=== PATIENT | female | born 2005 | race African-American/Black ===

== ENCOUNTER 2025-01-13 17:18 | Emergency (ER) | payer MEDICAID, SELFPAY ==
[2025-01-13 17:37] VITALS: BP 146/86; PULSE 88; RESP 16; TEMP 36.6; O2SAT 100
--- NOTE | 2025-01-13 17:46 | ED_ITS ---
HPI - Chest Pain General Chief Complaint: Extremity Injury, Upper <Bubba Corona APRN - Last Filed: 01/13/25 17:49> Stated Complaint: L ARM TINGLING, PALPATATIONS X 2DAYS <Bubba Corona APRN - Last Filed: 01/13/25 17:49> Time Seen by Provider: 01/13/25 18:37 <Bubba Corona APRN - Last Filed: 01/13/25 17:49> Focused HPI: 19-year-old female presents to the ER complaining of chest pain, palpitations, left arm tingling the last 2 days. Patient was recently seen for chest pain was told she had anxiety. Patient admits she has a history of anxiety. However today she developed left arm tingling and numbness which is new for her which is why she decided to come in for further evaluation. Patient denies any shortness of breath, nausea, vomiting, fevers, cough, congestion, abdominal pain, diarrhea, or any other symptoms. Patient is not taking for her anxiety. Patient says she 6 week had ultrasound her last ER visit told she has a viable . Patient has a follow-up with her OBGYN in February . GENERAL: Well-appearing, well-nourished, and in no acute distress. HEAD: Normocephalic, atraumatic. CHEST: Clear to auscultation. ?No respiratory distress. HEART: Regular rate and rhythm.? NEURO: ?Alert and oriented x3. Patient screened in triage and initial orders placed.? ?Additional care and disposition to be based upon?diagnostic testing and treatment. <Bubba Corona APRN - Last Filed: 01/13/25 17:49> Related Data Allergies/Adverse Reactions: Allergies Allergy/AdvReac Type Severity Reaction Status Date / Time meningococcal vaccine A and C Allergy Rash Verified 01/13/25 17:20 <Bubba Corona APRN - Last Filed: 01/13/25 17:49> Exam 2 Narrative: APPEARANCE: No apparent distress. Head: atraumatic. EYES: EOMI, NOSE: Atraumatic NECK: Trachea midline RESPIRATORY: No increased rate of breathing clear to auscultation CARDIOVASCULAR: RRR, no peripheral edema ABDOMINAL: Non-distended soft nontender MUSCULOSKELETAl: No obvious deformities NEURO: Alert. Moving 4/4 extremities SKIN:: Warm, dry. Normal color PSYCHIATRIC: Normal affect <Ken Damon MD - Last Filed: 01/13/25 20:31> Course Vital Signs Vital signs: Vital Signs Temperature 97.9 F 01/13/25 17:37 Pulse Rate 88 01/13/25 17:37 Respiratory Rate 16 01/13/25 17:37 Blood Pressure 146/86 H 01/13/25 17:37 Pulse Oximetry 100 01/13/25 17:37 Oxygen Delivery Room Air 01/13/25 17:37 Temperature 97.9 F 01/13/25 17:37 Pulse Rate 78 01/13/25 19:01 Respiratory Rate 23 H 01/13/25 19:01 Blood Pressure 118/91 H 01/13/25 19:00 Pulse Oximetry 100 01/13/25 19:01 Oxygen Delivery Room Air 01/13/25 17:37 <Bubba Corona APRN - Last Filed: 01/13/25 17:49> Vital Signs Temperature 97.9 F 01/13/25 17:37 Pulse Rate 88 01/13/25 17:37 Respiratory Rate 16 01/13/25 17:37 Blood Pressure 146/86 H 01/13/25 17:37 Pulse Oximetry 100 01/13/25 17:37 Oxygen Delivery Room Air 01/13/25 17:37 Temperature 97.9 F 01/13/25 17:37 Pulse Rate 78 01/13/25 19:01 Respiratory Rate 23 H 01/13/25 19:01 Blood Pressure 118/91 H 01/13/25 19:00 Pulse Oximetry 100 01/13/25 19:01 Oxygen Delivery Room Air 01/13/25 17:37 <Ken Damon MD - Last Filed: 01/13/25 20:31> MDM - Chest Pain MDM Narrative Medical decision making narrative: -Course: 19-year-old female with history of anxiety recently has had an unexpected/unplanned presenting for chest discomfort and left arm tingling. Patient says she has been having 3 weeks of a ?sick feeling in her chest. ?This started when she wakes up in the morning. Today she had some paresthesias in her left arm. She was seen at an outside hospital and prescribed antianxiety meds but she has not taken them because she said she tried than 3 years ago and they did not work. She does not have fevers chills productive cough shortness of breath abdominal pain vaginal bleeding or discharge. She does not have any swelling of her lower extremities. Extensive chest pain workup was ordered by provider in triage. Patient is but does not have any abdominal pain vaginal bleeding or discharge. She has had a viability ultrasound. No further workup required in the ED today. Workup was unrevealing. Chest x-ray was clear. Troponin D-dimer and BNP were all undetectable. EKG showed sinus arrhythmia. Patient was informed of the results instructed follow-up with her primary care physician for further management. -DDX includes but is not limited to: Anxiety, nausea from , pneumonia PE pneumothorax -Co-morbidities complicating care: Anxiety, <Ken Damon MD - Last Filed: 01/13/25 20:31> Lab Data Result diagrams: 01/13/25 18:45 01/13/25 18:45 <Bubba Corona APRN - Last Filed: 01/13/25 17:49> Labs: Lab Results 01/13/25 01/13/25 Range/Units 18:16 18:45 WBC 11.0 H (4.5-10.0) K/mm3 RBC 4.80 (4.2-5.4) M/mm3 Hgb 13.7 (12.0-15.0) g/dL Hct 41.1 (37.0-47.0) % MCV 85.6 (80-100) fl MCH 28.5 (26-34) pg MCHC 33.3 (32-36) g/dl RDW 12.8 (11.5-14.5) % Plt Count 353 (150-375) k/mm3 MPV 10.7 H (7.4-10.4) fl Immature Gran % (Auto) 0.4 (0-0.5) % Neut % (Auto) 70.4 (45.5-73.1) % Lymph % (Auto) 20.4 (18.3-44.2) % [place] % (Auto) 7.2 (2.6-8.5) % Eos % (Auto) 1.1 (0-4.4) % Baso % (Auto) 0.5 (0.2-1.2) % Lymph # (Auto) 2.24 (0.9-3.2) K/mm3 [place] # (Auto) 0.8 H (0.1-0.6) K/mm3 Eos # (Auto) 0.1 (0-0.3) K/mm3 Baso # (Auto) 0.1 (0.0-0.1) K/mm3 Abs Immat Gran (auto) 0.04 H (0.00-0.031) K/mm3 Absolute Neuts (auto) 7.7 H (1.3-6.7) K/mm3 Absolute Nucleated RBC 0.000 (0.0-0.012) K/mm3 Nucleated RBC % 0.0 (0.0-0.2) % PT 13.1 (11.1-14.7) Seconds INR 1.0 APTT 31.5 (22.3-36.8) Seconds D-Dimer < 0.27 (<0.48) ug/mL Sodium 136 (134-143) mmol/L Potassium 3.6 (3.4-5.0) mmol/L Chloride 103 (98-107) mmol/L Carbon Dioxide 23 (22-30) mmol/L Anion Gap 10 (4-12) mmol/L BUN 7 L (8-21) mg/dL Creatinine 0.59 L (0.7-1.0) mg/dL Estim Creat Clear Calc 128 ml/min Estimated GFR > 60 (59 - ) Glucose 83 (65-110) mg/dL Calcium 9.3 (8.9-10.7) mg/dL Total Bilirubin 0.6 (0.2-1.3) mg/dL AST 21 (14-36) U/L ALT 17 (6-35) U/L Alkaline Phosphatase 55 (45-116) U/L Troponin I < 0.012 (0.000-0.034) ng/mL Total Protein 7.6 (6.3-8.6) g/dL Albumin 4.4 (3.7-5.6) g/dL Lipase 186 (23-300) U/L Urine Color Cancelled Yellow Urine Appearance Cancelled Clear Urine pH Cancelled 7.5 Ur Specific [place] Cancelled 1.016 Urine Protein Cancelled Negative Urine Glucose (UA) Cancelled Negative Urine Ketones Cancelled Negative Ur Blood (Man) Cancelled Negative Urine Nitrate Cancelled Negative Urine Bilirubin Cancelled Negative Urine Urobilinogen Cancelled 0.2 Add Ur Microanalysis Cancelled Leukocyte Esterase Rfl Cancelled Trace H Urine RBC Cancelled 0-2 Urine WBC Cancelled 0-5 Urine WBC Clumps Cancelled Ur Squamous Epith Cells Cancelled Occasional Ur Transition Epith Cell Cancelled Ur Renal Epithelial Cell Cancelled [place] Biurate Crystals Cancelled Calcium Carbonate Cryst Cancelled Calcium Phosphate Cryst Cancelled Calcium Oxalate Crystal Cancelled Leucine Crystals Cancelled Cystine Crystals Cancelled Uric Acid Crystals Cancelled Triple Phos Crystals Cancelled Sulfonamide Crystals Cancelled Cholesterol Crystals Cancelled [place] Crystals Cancelled Tyrosine Crystals Cancelled Hippuric Acid Crystals Cancelled Bilirubin Crystals Cancelled Other Crystals Cancelled Amorphous Sediment Cancelled Other Sediment Cancelled Urine Bacteria Cancelled None seen Urine Casts Cancelled 0-2 Cellular Casts Cancelled Epithelial Casts Cancelled Fatty Casts Cancelled Hyaline Casts Cancelled Granular Casts Cancelled Waxy Casts Cancelled Broad Casts Cancelled RBC Casts Cancelled WBC Casts Cancelled Urine Starch Cancelled Urine Mucus Cancelled Urine Trichomonas Cancelled Urine Yeast (Budding) Cancelled Ur Oval Fat Bodies Cancelled Sperm Presence Cancelled <Bubba Corona, SHERRIE - Last Filed: 01/13/25 17:49> Lab Results 01/13/25 01/13/25 Range/Units 18:16 18:45 WBC 11.0 H (4.5-10.0) K/mm3 RBC 4.80 (4.2-5.4) M/mm3 Hgb 13.7 (12.0-15.0) g/dL Hct 41.1 (37.0-47.0) % MCV 85.6 (80-100) fl MCH 28.5 (26-34) pg MCHC 33.3 (32-36) g/dl RDW 12.8 (11.5-14.5) % Plt Count 353 (150-375) k/mm3 MPV 10.7 H (7.4-10.4) fl Immature Gran % (Auto) 0.4 (0-0.5) % Neut % (Auto) 70.4 (45.5-73.1) % Lymph % (Auto) 20.4 (18.3-44.2) % [place] % (Auto) 7.2 (2.6-8.5) % Eos % (Auto) 1.1 (0-4.4) % Baso % (Auto) 0.5 (0.2-1.2) % Lymph # (Auto) 2.24 (0.9-3.2) K/mm3 [place] # (Auto) 0.8 H (0.1-0.6) K/mm3 Eos # (Auto) 0.1 (0-0.3) K/mm3 Baso # (Auto) 0.1 (0.0-0.1) K/mm3 Abs Immat Gran (auto) 0.04 H (0.00-0.031) K/mm3 Absolute Neuts (auto) 7.7 H (1.3-6.7) K/mm3 Absolute Nucleated RBC 0.000 (0.0-0.012) K/mm3 Nucleated RBC % 0.0 (0.0-0.2) % PT 13.1 (11.1-14.7) Seconds INR 1.0 APTT 31.5 (22.3-36.8) Seconds D-Dimer < 0.27 (<0.48) ug/mL Sodium 136 (134-143) mmol/L Potassium 3.6 (3.4-5.0) mmol/L Chloride 103 (98-107) mmol/L Carbon Dioxide 23 (22-30) mmol/L Anion Gap 10 (4-12) mmol/L BUN 7 L (8-21) mg/dL Creatinine 0.59 L (0.7-1.0) mg/dL Estim Creat Clear Calc 128 ml/min Estimated GFR > 60 (59 - ) Glucose 83 (65-110) mg/dL Calcium 9.3 (8.9-10.7) mg/dL Total Bilirubin 0.6 (0.2-1.3) mg/dL AST 21 (14-36) U/L ALT 17 (6-35) U/L Alkaline Phosphatase 55 (45-116) U/L Troponin I < 0.012 (0.000-0.034) ng/mL Total Protein 7.6 (6.3-8.6) g/dL Albumin 4.4 (3.7-5.6) g/dL Lipase 186 (23-300) U/L Urine Color Cancelled Yellow Urine Appearance Cancelled Clear Urine pH Cancelled 7.5 Ur Specific [place] Cancelled 1.016 Urine Protein Cancelled Negative Urine Glucose (UA) Cancelled Negative Urine Ketones Cancelled Negative Ur Blood (Man) Cancelled Negative Urine Nitrate Cancelled Negative Urine Bilirubin Cancelled Negative Urine Urobilinogen Cancelled 0.2 Add Ur Microanalysis Cancelled Leukocyte Esterase Rfl Cancelled Trace H Urine RBC Cancelled 0-2 Urine WBC Cancelled 0-5 Urine WBC Clumps Cancelled Ur Squamous Epith Cells Cancelled Occasional Ur Transition Epith Cell Cancelled Ur Renal Epithelial Cell Cancelled [place] Biurate Crystals Cancelled Calcium Carbonate Cryst Cancelled Calcium Phosphate Cryst Cancelled Calcium Oxalate Crystal Cancelled Leucine Crystals Cancelled Cystine Crystals Cancelled Uric Acid Crystals Cancelled Triple Phos Crystals Cancelled Sulfonamide Crystals Cancelled Cholesterol Crystals Cancelled [place] Crystals Cancelled Tyrosine Crystals Cancelled Hippuric Acid Crystals Cancelled Bilirubin Crystals Cancelled Other Crystals Cancelled Amorphous Sediment Cancelled Other Sediment Cancelled Urine Bacteria Cancelled None seen Urine Casts Cancelled 0-2 Cellular Casts Cancelled Epithelial Casts Cancelled Fatty Casts Cancelled Hyaline Casts Cancelled Granular Casts Cancelled Waxy Casts Cancelled Broad Casts Cancelled RBC Casts Cancelled WBC Casts Cancelled Urine Starch Cancelled Urine Mucus Cancelled Urine Trichomonas Cancelled Urine Yeast (Budding) Cancelled Ur Oval Fat Bodies Cancelled Sperm Presence Cancelled <Ken Damon MD - Last Filed: 01/13/25 20:31> Discharge Plan Discharge Clinical Impression: Anxiety, Arm paresthesia, left <Bubba Corona APRN - Last Filed: 01/13/25 17:49> Patient Disposition: Home <Bubba Corona APRN - Last Filed: 01/13/25 17:49> Condition: Stable <Bubba Corona APRN - Last Filed: 01/13/25 17:49> Instructions: Antibiotic Form, Chest Pain (DC) <Bubba Corona APRN - Last Filed: 01/13/25 17:49> Additional Instructions: You were seen in the emergency department for chest discomfort. Your workup here did not reveal a cause. It may be due to your anxiety. Please follow-up with your primary care physician for further management. If you develop worsening chest pain difficulty breathing or any new symptoms please return to the ED for re-evaluation. <Bubba Corona APRN - Last Filed: 01/13/25 17:49> Patient Language: Romanian <Bubba Corona APRN - Last Filed: 01/13/25 17:49> Follow-up/Referrals: PHYSICIAN,PECAN PICKER [Primary Care Provider, Internal Medicine] <Bubba Corona APRN - Last Filed: 01/13/25 17:49>
--- NOTE | 2025-01-13 17:48 | ECG_ITS ---
Test Date: 2025-01-13 18:38:25 Measurements Intervals [place] Rate: 90 P: 38 NV: 118 QRS: 23 QRSD: 86 T: 31 QT: 353 QTc: 432 Interpretive Statements SINUS ARRHYTHMIA No previous ECG available for comparison Electronically Signed On 01-14-2025 11:00:14 CDT by Berny Galindo M.D.
[2025-01-13 18:49] VITALS: PULSE 89; RESP 22; O2SAT 100
[2025-01-13 18:50] VITALS: BP 122/80; PULSE 84; RESP 24; O2SAT 100
[2025-01-13 19:00] VITALS: BP 118/91; PULSE 77; RESP 22; O2SAT 100
[2025-01-13 19:01] VITALS: PULSE 78; RESP 23; O2SAT 100
--- NOTE | 2025-01-13 19:08 | ED_ITS ---
HPI - General Adult General Chief complaint: Extremity Injury, Upper Stated complaint: L ARM TINGLING, PALPATATIONS X 2DAYS Time Seen by Provider: 01/13/25 18:37 Related Data Allergies Allergy/AdvReac Type Severity Reaction Status Date / Time meningococcal vaccine A and C Allergy Rash Verified 01/13/25 17:20 Exam 2 Narrative: APPEARANCE: No apparent distress. Head: atraumatic. EYES: EOMI, NOSE: Atraumatic NECK: Trachea midline RESPIRATORY: No increased rate of breathing CARDIOVASCULAR: RRR, ABDOMINAL: Non-distended MUSCULOSKELETAl: No obvious deformities NEURO: Alert. Moving 4/4 extremities SKIN:: Warm, dry. Normal color PSYCHIATRIC: Normal affect Course Vital Signs Vital signs: Vital Signs Temperature 97.9 F 01/13/25 17:37 Pulse Rate 88 01/13/25 17:37 Respiratory Rate 16 01/13/25 17:37 Blood Pressure 146/86 H 01/13/25 17:37 Pulse Oximetry 100 01/13/25 17:37 Oxygen Delivery Room Air 01/13/25 17:37 Temperature 97.9 F 01/13/25 17:37 Pulse Rate 78 01/13/25 19:01 Respiratory Rate 23 H 01/13/25 19:01 Blood Pressure 118/91 H 01/13/25 19:00 Pulse Oximetry 100 01/13/25 19:01 Oxygen Delivery Room Air 01/13/25 17:37 Medical Decision Making Vital Signs Vital Signs: Vital Signs Temperature 97.9 F 01/13/25 17:37 Pulse Rate 88 01/13/25 17:37 Respiratory Rate 16 01/13/25 17:37 Blood Pressure 146/86 H 01/13/25 17:37 Pulse Oximetry 100 01/13/25 17:37 Oxygen Delivery Room Air 01/13/25 17:37 Temperature 97.9 F 01/13/25 17:37 Pulse Rate 78 01/13/25 19:01 Respiratory Rate 23 H 01/13/25 19:01 Blood Pressure 118/91 H 01/13/25 19:00 Pulse Oximetry 100 01/13/25 19:01 Oxygen Delivery Room Air 01/13/25 17:37 Lab Data 01/13/25 18:45 01/13/25 18:45 Labs: Lab Results 01/13/25 01/13/25 Range/Units 18:16 18:45 WBC Pending RBC Pending Hgb Pending Hct Pending MCV Pending MCH Pending MCHC Pending RDW Pending Plt Count Pending MPV Pending Immature Gran % (Auto) Pending Neut % (Auto) Pending Lymph % (Auto) Pending [place] % (Auto) Pending Eos % (Auto) Pending Baso % (Auto) Pending Lymph # (Auto) Pending [place] # (Auto) Pending Eos # (Auto) Pending Baso # (Auto) Pending Abs Immat Gran (auto) Pending Absolute Neuts (auto) Pending Absolute Nucleated RBC Pending Nucleated RBC % Pending PT Pending INR Pending APTT Pending D-Dimer Pending Sodium Pending Potassium Pending Chloride Pending Carbon Dioxide Pending Anion Gap Pending BUN Pending Creatinine Pending Estim Creat Clear Calc Pending Estimated GFR Pending Glucose Pending Calcium Pending Total Bilirubin Pending AST Pending ALT Pending Alkaline Phosphatase Pending Troponin I Pending Total Protein Pending Albumin Pending Lipase Pending Urine Color Cancelled Pending Urine Appearance Cancelled Pending Urine pH Cancelled Pending Ur Specific [place] Cancelled Pending Urine Protein Cancelled Pending Urine Glucose (UA) Cancelled Pending Urine Ketones Cancelled Pending Ur Blood (Man) Cancelled Pending Urine Nitrate Cancelled Pending Urine Bilirubin Cancelled Pending Urine Urobilinogen Cancelled Pending Add Ur Microanalysis Cancelled Leukocyte Esterase Rfl Cancelled Pending Urine RBC Cancelled Urine WBC Cancelled Urine WBC Clumps Cancelled Ur Squamous Epith Cells Cancelled Ur Transition Epith Cell Cancelled Ur Renal Epithelial Cell Cancelled [place] Biurate Crystals Cancelled Calcium Carbonate Cryst Cancelled Calcium Phosphate Cryst Cancelled Calcium Oxalate Crystal Cancelled Leucine Crystals Cancelled Cystine Crystals Cancelled Uric Acid Crystals Cancelled Triple Phos Crystals Cancelled Sulfonamide Crystals Cancelled Cholesterol Crystals Cancelled [place] Crystals Cancelled Tyrosine Crystals Cancelled Hippuric Acid Crystals Cancelled Bilirubin Crystals Cancelled Other Crystals Cancelled Amorphous Sediment Cancelled Other Sediment Cancelled Urine Bacteria Cancelled Urine Casts Cancelled Cellular Casts Cancelled Epithelial Casts Cancelled Fatty Casts Cancelled Hyaline Casts Cancelled Granular Casts Cancelled Waxy Casts Cancelled Broad Casts Cancelled RBC Casts Cancelled WBC Casts Cancelled Urine Starch Cancelled Urine Mucus Cancelled Urine Trichomonas Cancelled Urine Yeast (Budding) Cancelled Ur Oval Fat Bodies Cancelled Sperm Presence Cancelled Discharge Plan Discharge Patient Language: Guamanian Follow-up/Referrals: PHYSICIAN,OVERLOCK SEWING MACHINE OPERATOR [Primary Care Provider, Internal Medicine]
[2025-01-13 19:19] LABS: Alanine Aminotransferase 17 U/L (6-35); Albumin Level 4.4 g/dL (3.7-5.6); Alkaline Phosphatase 55 U/L (45-116); Anion Gap 10 mmol/L (4-12); Aspartate Amino Transferase 21 U/L (14-36); Bilirubin,Total 0.6 mg/dL (0.2-1.3); Blood Urea Nitrogen 7 mg/dL (8-21); Calcium 9.3 mg/dL (8.9-10.7); Carbon Dioxide 23 mmol/L (22-30); Chloride 103 mmol/L (98-107); Estimated CRCL calculation 128 ml/min; Estimated Glomerular Filt Rate > 60; Glucose 83 mg/dL (65-110); Lipase 186 U/L (23-300); Potassium 3.6 mmol/L (3.4-5.0); Sodium 136 mmol/L (134-143); Total Protein 7.6 g/dL (6.3-8.6)
--- NOTE | 2025-01-13 19:25 | PC.NURSE ---
Assumed care of pt after receiving bedside report from ANTOINETTE Cook @ [phone]
[2025-01-13 19:31] LABS: Troponin I < 0.012 ng/mL (0.000-0.034)
[2025-01-13 19:34] LABS: INR 1.0; Prothrombin Time 13.1 Seconds (11.1-14.7)
[2025-01-13 19:35] LABS: Partial Thromboplastin Time 31.5 Seconds (22.3-36.8)
[2025-01-13 19:42] LABS: Add Urine Microscopic? YES; Appearance Urine Clear (Clear); Glucose Urine UA Negative (Negative); Leukocyte Esterase Ur Trace LEU/UL (Negative); Nitrate Urine Negative (Negative); Non Pathogenic Casts 0-2; Specific Grav Ur 1.016 (1.001-1.035)
[2025-01-13 20:14] LABS: Hematocrit 41.1 % (37.0-47.0); Hemoglobin 13.7 g/dL (12.0-15.0); Immature Granulocyte Percent A 0.4 % (0-0.5); Lymphocytes Absolute Auto 2.24 K/mm3 (0.9-3.2); Mean Corpuscular HGB Conc 33.3 g/dl (32-36); Mean Corpuscular Hemoglobin 28.5 pg (26-34); Mean Corpuscular Volume 85.6 fl (80-100); Nucleated Red Blood Cells Absolute Auto 0.000 K/mm3 (0.0-0.012); Nucleated Red Blood Cells Perc 0.0 % (0.0-0.2); Platelet Count Result 353 k/mm3 (150-375); Red Blood Count 4.80 M/mm3 (4.2-5.4); White Blood Count 11.0 K/mm3 (4.5-10.0)
== END 2025-01-13 21:01 | disposition home or self-care (01) ==
PROVIDERS: Emergency Provider Emergency Medicine
DX: O99.891 Other specified diseases and conditions complicating pregnancy (principal); R20.2 Paresthesia of skin; O99.341 Other mental disorders complicating pregnancy, first trimester; F41.9 Anxiety disorder, unspecified; Z3A.01 Less than 8 weeks gestation of pregnancy
CPT/HCPCS: 36415; 80053; 81001; 83690; 84484; 85025; 85380; 85610; 85730; 93005; 99284

== ENCOUNTER 2025-04-21 07:17 | Emergency (ER) | payer OTHER, SELFPAY ==
[2025-04-21 07:28] VITALS: BP 139/100; PULSE 97; RESP 16; TEMP 36.4; O2SAT 99
--- NOTE | 2025-04-21 07:29 | ED_ITS ---
HPI - General Adult General Chief complaint: Skin/Abscess/Foreign Body Stated complaint: RASH ON L ANABAPTIST Time Seen by Provider: 04/21/25 07:24 History of Present Illness HPI narrative: 20-year-old female presented to the emergency department for evaluation for a left-sided facial rash. Patient suspects this was secondary to exposure to a metal clip that she had worn for few days. Patient denies any tenderness at the site but does report itching. Patient is no medications and is not immunocompromised. Patient denies any difficulty breathing or swallowing. Related Data Allergies Allergy/AdvReac Type Severity Reaction Status Date / Time fluoxetine AdvReac Headache Verified 04/21/25 07:18 MENINGITIS VACCINE Allergy RASH Uncoded 04/21/25 07:18 Review of Systems Review of Systems: All systems reviewed & are unremarkable except as noted in HPI and below Exam Narrative: APPEARANCE: Well appearing, no pain, no distress, well-nourished. HEAD: normocephalic, atraumatic. EYES: PERRLA/EOMI, conjunctivae clear. NOSE: Normal no drainage EARS:TMS clear with good light reflex. THROAT: Pharynx clear, no exudate. NECK: Supple. No adenopathy, no masses. RESPIRATORY: Airway patent, respirations nonlabored. Clear to auscultation bilaterally, no rales, rhonchi, wheezing. CARDIOVASCULAR: Regular rate and rhythm without murmurs rubs or gallops. ABDOMINAL: Soft, nontender, nondistended, normal bowel sounds MUSCULOSKELETAL: Moves all extremities. Strength/ROM intact, No edema, No calf tenderness. NEURO: Alert. Cranial nerves II through XII intact. Good gait. Good coordination SKIN: Rash at left religion Course Vital Signs Vital signs: Vital Signs Temperature 97.6 F 04/21/25 07:28 Pulse Rate 97 04/21/25 07:28 Respiratory Rate 16 04/21/25 07:28 Blood Pressure 139/100 H 04/21/25 07:28 Pulse Oximetry 99 04/21/25 07:28 Oxygen Delivery Room Air 04/21/25 07:28 Temperature 97.6 F 04/21/25 07:28 Pulse Rate 97 04/21/25 07:28 Respiratory Rate 16 04/21/25 07:28 Blood Pressure 128/93 H 04/21/25 07:50 Pulse Oximetry 99 04/21/25 07:28 Oxygen Delivery Room Air 04/21/25 07:28 MDM MDM Narrative Medical decision making narrative: 20-year-old female present to the emergency department for evaluation for a rash on her left religion. Rash does not appear to be cellulitic or herpetic. No tenderness to palpation. Patient does report itching. Patient will be treated with topical cortisone. Patient was encouraged of close follow-up with primary care physician. Differential Diagnosis Differential Diagnosis: Shingles, herpes, syphilis, cellulitis, dermatitis Discharge Plan Discharge Clinical Impression: Contact dermatitis Patient Disposition: Home Condition: Stable Instructions: Antibiotic Form, Contact Dermatitis (ED) Additional Instructions: Hydrocortisone steroid cream as directed. Have close follow-up with your primary care physician. Patient Language: South African Prescriptions: New hydrocortisone 1 % ointment 1 applic topical BID 5 Days Qty: 28.35 0RF Follow-up/Referrals: PHYSICIAN NOT ON STAFF,NONSTAFF [Non-Staff]
--- OUTSIDE RECORDS SUMMARY | 2025-04-21 07:47 | XMS_ITS | Clinical Summary ---
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 Gender Identity Not on file Sexual Orientation Not on file Plan of Treatment Health Maintenance Due Date Last Done Comments Hepatitis C Virus (HCV) Screening 2005 Human Papillomavirus (HPV) Immunization (1 - 3-dose series) 2020 Meningococcal B Immunization (1 of 2 - Standard) 2021 Influenza Immunization (#1) 2025 07/04/2018, 1 2005 SARS-COV-2 Immunization () 01/04/2025 Respiratory Syncytial Virus (RSV) Immunization (Adult) (1 - 1-dose 75+ series) 2080 Hepatitis B Immunization Completed 006, 2005, 2005, Additional history exists Hepatitis A Immunization Discontinued 10/31/2006, 04/05 Measles Mumps Rubella (MMR) Immunization Discontinued 05/09/2009, 04/22/2006 Polio (IPV) Immunization Discontinued 05/09/2009 Varicella Immunization Discontinued 05/09/2009, 2005 Pneumococcal Immunization Combined Completed 12/20/2009, 04/22/2006, 2005, Additional history exists DTaP/Tdap/Td Immunization Discontinued 2016, 05/09/2009, 07/17/2006, Additional history exists TdaP Immunization Completed 01/15/2017 Meningococcal Immunization (ACWY) Aged Out 03/13/2017, 12/17/2013 No longer eligibl e based on patient's age to complete this topic Rotavirus Immunization Aged Out No lo nger eligible based on patient's age to complete this topic
--- OUTSIDE RECORDS SUMMARY | 2025-04-21 07:47 | XMS_ITS | Encounter Summary ---
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 Name Role Phone Mani Vincent DO Primary Care Provider [phone] Encounter Details Date Type Department Care Team (Late st Contact Info) Description 03/15/2025 Results Follow-Up [facility] Family Medicine [address] [id number] Mani Vincent DO [address] [place] [address] Sureswab(R) Advanced Vaginitis Plus, TMA Vaginal Social History Tobacco Use Types Packs/Day Years Used Date Smoking Tobacco: Never Passive Smoke Exposure: Never Smokeless Tobacco: Never Alcohol Use Standard Drinks/Week Comments Never 0 (1 standard drink = 0.6 oz pur e alcohol) PHQ-2 Answer Date Recorded PHQ-2 Total Score (If total score is 3 or more points, staff should administer the PHQ-9) 0 03/12/2025 PHQ-9 Answer Date Recorded PHQ-9 Total Score 16 02/12/2025 AUDIT-C Answer Date Recorded Q1: How often do you have a drink containing alcohol? Never 03/15/2025 Q2: How many drinks containi ng alcohol do you have on a typical day when you are drinking? Patient does not drink Q3: How often do you have si x or more drinks on one occasion? Never 03/15/2025 Personal Safety Answer Date Recorded Have you ever been in or are you currently in a harmful physical or emotional relationship or is someone making you feel afraid or unsafe? 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 Gender Identity Female 03/05/2025 4:02 PM CDT Sexual Orientation Not on file documented as of this encounter Functional Status * Difference in Last Two Sedrick Scores Answer Date of Assessment Author -23 03/16/2025 1:47 PM Yfn Willams RN * Question Answer Date of Assessment Author BP Method Automatic 03/16/2025 2:29 PM Naima Willams RN MAP (mmHg) 97 03/16/2025 3:10 PM Naima Willams RN * [place] Fall Risk Question Answer Date of Assessment Author History of Falling 0 03/16/2025 3:23 PM Naima Willams RN Secondary Diagnosis 15 03/16/2025 3:23 PM Naima Downey RN Ambulatory Aids 0 03/16/2025 3:23 PM Naima Hernadez RN Intravenous Therapy/Heparin/Saline Lock 20 03/16/2025 3:23 PM Yfn Willams RN Gait/Transferring 0 03/16/2025 3:23 PM Naima Willams RN Mental Status 0 03/16/2025 3:23 PM Naima Willams RN M[place] Fall Risk Score (Score >= 45 places fall precaution order) 35 03/16/2025 3:23 PM Naima Willams RN Prior Fall Event (Autopopulated from EMR) None found 03/16/2025 3:23 PM Naima Willams RN * Sedrick Scale Question Answer Date of Assessment Author Sensory Perceptions 4 03/16/2025 1:47 PM Naima Downey RN Moisture 4 03/16/2025 1:47 PM Naima Willams RN Activity 4 03/16/2025 1:47 PM Naima Willams RN Mobility 4 03/16/2025 1:47 PM Naima Willams RN Nutrition 4 03/16/2025 1:47 PM Naima Willams RN Friction and Shear 3 03/16/2025 1:47 PM Naima Willams RN Sedrick Scale Score 23 03/16/2025 1:47 PM Naima Willams RN * Fall Risk Interventions Question Answer Date of Assessment Author All Low Fall Interventions Applied Yes 03/16/2025 3:23 PM Naima Willams RN All Moderate Fall Interventi ons Applied Yes 03/16/2025 3:23 PM Naima Willams RN * B.M.A.T. - Bedside Mobility Assessment Tool for Nurses Question Answer Date of Assessment Author Is patient able to participate in the BMAT? Yes 03/16/2025 1:47 PM Naima Willams RN BMAT Level Level 4 - Green 03/16/2025 1:47 PM Naima Hernadez RN * Pressure Injury Prevention Question Answer Date of Assessment Author Pressure Ulcer Prevention Interventions Keep skin clean and dry (Sensory Perception/Moisture ) 03/16/2025 3:00 PM Naima Willams RN * AUDIT-C Score Answer Date of Assessment Author 0 03/15/2025 12:34 PM Dorothy Brown RN * Alcohol Use Question Answer Date of Assessment Author Q1: How often do you have a drink containing alcohol? Never 03/15/2025 12:34 PM Dorothy Brown, ANTOINETTE Q2: How many drinks containing alcohol do you have on a typical day when you are drinking? Patient does not drink 03/15/2025 12:34 PM Dorothy Brown, ANTOINETTE Q3: How often do you have six or more drinks on one occasion? Never 03/15/2025 12:34 PM Dorothy Brown, ANTOINETTE * Integumentary Question Answer Date of Assessment Author Skin Color Appropriate for ethnicity 03/16/2025 3:00 PM Naima Willams RN Skin Condition/Temp Warm;Dry 03/16/2025 3:00 PM Naima Downey RN Skin Integrity Intact 03/16/2025 3:00 PM Naima Godwin RN Integumentary (WDL) X 03/16/2025 3:00 PM Naima Downey RN * Sedrick Scale Question Answer Date of Assessment Author Sedrick Scale Used Sedrick 03/16/2025 1:47 PM Naima Willams RN * Question Answer Date of Assessment Author BP Method Automatic 03/16/2025 2:29 PM Naima Willams RN * Fall Risk Interventions Question Answer Date of Assessment Author All Low Fall Interventions Applied Yes 03/16/2025 3:23 PM Naima Willams RN All Moderate Fall Interventi ons Applied Yes 03/16/2025 3:23 PM Naima Willams RN documented as of this encounter Mental Status * Question Answer Entry Date Author Level of Consciousness Drowsy;Awake;Alert 2024 3:00 PM Naima Willams RN Orientation Oriented X4 (person, place, time, situation) 03/16/2025 3:00 PM Naima Willams RN Neuro (WDL) X 03/16/2025 3:00 PM Naima Willams RN documented in this encounter Plan of Treatment Not on file documented as of this encounter Visit Diagnoses Not on filedocumented in this encounter Additional Health Concerns Infection Onset Date Last Indicated Resolved Time COVID: Suspected 03/30/2025 03/30/2025 03/30/2025 2:45 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
--- OUTSIDE RECORDS SUMMARY | 2025-04-21 07:48 | XMS_ITS | Clinical Summary ---
Author Organization [facility] Virtual Care Address [address] [place] [phone] Phone Care Team Providers Care Cabinet Installer Name Role Phone HerlindaMani crocker Primary Care Provider [phone] Allergies Active Allergy Reactions Criticality Noted Date Comments N.Meningitidis B,Lipid Fhbp Rc Rash Medium 03/25 Fluoxetine Headache Low 04/12/2025 Medications dicyclomine (BENTYL) 20 mg tablet Take 1 tablet (20 mg total) by mouth every 6 (six) hours as needed (abdominal cramping) 12 tablet 5 Active Additional Information Patient not taking.Reported on 04/12/2025 ibuprofen (ADVIL,MOTRIN) 600 mg tablet Take 1 tablet (600 mg total) by mouth every 6 (six) hours as needed for pain 30 tablet 1 5 Active sertraline (ZOLOFT) 25 mg tabletIndicatio ns:Generalized anxiety disorder Take 1 tablet (25 mg total) by mouth daily 30 tablet 11 5 026 Active PNV with rakyddk-usba-UR 27 mg iron- 1 mg tablet Take 1 tablet by mouth daily 60 tablet 5 025 Discontin ued(Patie nt Reported) azithromycin (ZITHROMAX) 500 mg tabletIndicatio ns:Sexually Transmitted Infection Take 2 tablets (1,000 mg total) by mouth once for 1 dose 2 tablet 5 025 Discontin ued(Patie nt Reported) simethicone (MYLICON) 125 mg chewable tablet Take 1 tablet (125 mg total) by mouth every 6 (six) hours as needed for flatulence 12 tablet 5 025 Discontin ued(Patie nt Reported) HYDROcodone-maira taminophen (NORCO) 5-325 mg per tabletIndicatio ns:Pain Take 1-2 tablets by mouth every 6 (six) hours as needed for pain 6 tablet 5 025 Discontin ued(Patie nt Reported) Active Problems Problem Noted Date Diagnosed Date Generalized anxiety disorder 04/12/2025 Assessment & Plan (04/12/2025 1:36 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 Previous therapy was not helpful. PHQ-9 and tawny 7 results reviewed and elevated. Open to medication management. Discussed potential side effects including tiredness, nausea, and mood worsening. Prozac not well-tolerated in the past due to headaches. - Prescribed Zoloft 25 mg daily. - Scheduled follow-up in 6 weeks to assess response to medication. 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 Previous therapy was not helpful. PHQ-9 and tawny 7 results reviewed and elevated. Open to medication management. Discussed potential side effects including tiredness, nausea, and mood worsening. Prozac not well-tolerated in the past due to headaches. - Prescribed Zoloft 25 mg daily. - Scheduled follow-up in 6 weeks to assess response to medication. Orders: sertraline (ZOLOFT) 25 mg tablet; Take 1 tablet (25 mg total) by mouth daily Assessment & Plan (03/12/2025 2:04 PM LABORER CHEMICAL PROCESSING): Persistent, still not on medication therapy, she would like to hold off on trialing medication therapy at this time. She would like to meet with a counselor or psychologist, provided packet of local providers for her to review. -Suspect likely also reactive in nature from her recent life stresses. -Follow up closely in 1 month. 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 8.6 weeks gestation by ultrasound performed on 01/21/2025. EDC August 31 which is not consistent with LMP EDC. -We spoke about the practice, delivery at [facility], milestones during . Specifically we talked about the patient's hypertension. Monitoring blood pressures and continuing 60 XL daily. -After long discussion patient stated that she would like to terminate the . She understands that this will likely not affect her blood pressure. She must follow up with her PCP Dr. Mani Vincent- She has been appointment February 12. -She understands the alternatives termination. -Patient was welcomed to our practice. Encouraged to call with any problems or questions. 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 Encounters Date Type Department Care Team Description 04/13/2025 Results Follow-Up [facility] Medicine [address] [place] [phone] Head WO Contrast 04/12/2025 1:00 PM LABORER CHEM[employer] PROCESSING Office Visit [facility] Medicine [address] [place] [phone] Mani Vincent DO Generalized anxiety disorder (Primary Dx); Moderately severe major depression (HCC); Dizziness; Elevated BP without diagnosis of hypertension 03/30/2025 1:55 PM LAB[employer]ER CHEM[employer] PROCESSING - 03/30/2025 3:53 PM LABORER CHEMICAL PROCESSING Emergency [facility] Emergency Department [address] [place] [address] Lightheadedness (Primary Dx); Elevated blood pressure reading Discharge Disposition: Discharge to home or self care 03/30/2025 Orders Only [facility] Medicine [address] [place] [phone] Mani Vincent DO 03/23/2025 Documentation [facility] Care at [address] [phone] Juan Ramires MD 03/17/2025 Documentation [facility] Care at [address] [phone] Juan Ramires MD 03/16/2025 2:13 PM LABORER CHEM[employer] PROCESSING - 03/16/2025 3:13 PM LABORER CHEMICAL PROCESSING Surgery [facility] [address] [place] [phone] Juan Ramires MD Suction D&C 03/16/2025 2:00 PM LAB[employer]ER CHEM[employer] PROCESSING Anesthesia Event [facility] [address] [place] [phone] Nu Baum MD Hogg, Marissa Jee, CRNA 03/16/2025 1:18 PM LAB[employer]ER [employer]ESSING - 03/16/2025 3:31 PM LABORER CHEMICAL PROCESSING Hospital Encounter [facility] [address] [place] [phone] Juan Ramires MD Missed ab Discharge Disposition: Discharge to home or self care 03/15/2025 Telephone [facility] Care at [address] [phone] Juan Ramires MD Surgery Information 03/15/2025 Results Follow-Up [facility] Family Medicine [address] [phone] Mani Vincent DO Sureswab(R) Advanced Vaginitis Plus, TMA Vaginal 03/14/2025 2:53 AM LAB[employer]ER CHEM[employer] PROCESSING - 03/14/2025 3:11 AM LABORER CHEMICAL PROCESSING Emergency [facility] Emergency Department [address] [place] [address] Abdominal pressure (Primary Dx) Discharge Disposition: Discharge to home or self care 03/12/2025 1:00 PM LAB[employer]ER [employer]ESSING Office Visit [facility] [address] [place] [phone] Mani Vincent DO Moderately severe major depression (HCC) (Primary Dx); Chlamydia infection; Elevated BP without diagnosis of hypertension 03/12/2025 10:00 AM LABORER CHEMICAL PROCESSING Ancillary Procedure [facility] at [address] [phone] Spontaneous , incomplete 03/11/2025 Telephone [facility] at [address] [phone] Juan Ramires MD 03/06/2025 10:13 PM CDT - 03/06/2025 11:32 PM CDT Emergency [facility] Emergency Department [address] [place] [address] Pleuritic chest pain (Primary Dx); Suprapubic pain; Acute midline low back pain, unspecified whether sciatica present Discharge Disposition: Discharge to home or self care 03/02/2025 Telephone [facility] Medicine [address] [place] [phone] Mani Vincent DO [facility] 02/24/2025 6:24 PM CDT - 02/24/2025 8:27 PM CDT Emergency [facility] Emergency Department [address] [place] [address] Chest wall pain (Primary Dx) Discharge Disposition: Discharge to home or self care 02/22/2025 Orders Only [facility] [address] [place] [phone] Georgina Reyes PA BV (bacterial vaginosis) 02/22/[address] [phone] Georgina Reyes PA 02/22/2025 Orders Only [facility] at [address] [phone] Juan Ramires MD 02/22/2025 Orders Only [address] [phone] Mani Vincent DO BV (bacterial vaginosis) (Primary Dx) 02/17/2025 3:41 PM CDT - 02/17/2025 4:27 PM CDT Emergency [facility] Emergency Department [address] [place] [phone] Ilya Hall MD Miscarriage (Primary Dx); Musculoskeletal pain; Chlamydia infection Discharge Disposition: Discharge to home or self care 02/17/2025 Documentation [facility] at [address] [phone] Juan Ramires MD 02/17/2025 Telephone [facility] at [address] [phone] Diaz Yun 02/17/2025 Orders Only [address] [phone] Mani Vincent DO 02/15/2025 Results Follow-Up [address] [phone] Mani Vincent DO Sureswab(R) Advanced Vaginitis Plus, TMA Vaginal fluid 02/12/2025 7:00 AM CDT Office Visit [address] [phone] Mani Vincent DO Vaginal discharge during in first trimester (Primary Dx); Elevated BP without diagnosis of hypertension; Anxiety and depression; Chronic neck and back pain; 11 weeks gestation of 01/25/2025 1:30 PM CDT Office Visit [facility] at [address] [phone] Juan Ramires MD Supervision of other high risk , antepartum (Primary Dx); Secondary amenorrhea 01/22/2025 4:42 PM CDT - 01/22/2025 5:05 PM CDT Emergency [facility] Emergency Department [address] [place] [address] Acute nonintractable headache, unspecified headache type (Primary Dx); Hypertension during in first trimester, unspecified hypertension in type Discharge Disposition: Discharge to home or self care 01/22/2025 10:47 AM CDT - 01/22/2025 12:48 PM CDT Emergency [facility] [address] [place] [address] Discharge Disposition: Left without being seen 01/22/2025 Telephone [facility] at [address] [phone] Juan Ramires MD 01/21/2025 3:01 PM CDT - 01/21/2025 9:19 PM CDT Emergency [facility] Emergency Department [address] [place] [address] Isai Gamble MD Hypertension affecting in first trimester (Primary Dx) Discharge Disposition: Discharge to home or self care from Last 3 Months Immunizations Immunization Administration Dates Next Due DTP 07/17/2006,2005,2005 DTaP 05/09/2009,2005 Hep A, Pediatric 10/31/2006,04/22/2006 Hep B, Adolescent or Pediatric 2005 Hep B, Unspecified 2005,2005, 005 HiB 04/22/2006,2005 Hib (HbOC) 2005,2005 IPV 05/09/2009 Influenza, Quadrivalent, Spl it, Preservative Free, Intramuscular 07/04/2018 Influenza, Trivalent, IM (MDV) 03/03/2024 Influenza, Unspecified 02/03/2025(Deferr ed: Patient decision),04/22/2006 MMR 05/09/2009,04/22/2006 Meningococcal A,C,W,Y-TT (Ravindra Hefi) 04/10/2023 Meningococcal MCV4P (Menactra) 03/13/2017,2013 Pneumococcal Conjugate PCV 13 12/20/2009 ,04/22/2006,2005,08/16,2005 Polio, Unspecified 2005,2005, 006 Tdap 01/15/2017 Varicella 05/09/2009,04/22/2006 Medical History Medical History Date Comments Hypertension Anxiety 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 Family History Medical History Relation Name Comments Diabetes Father Gabo Cancer Maternal Grandmother Shruti Leyva Bipolar disorder Mother Tesha Leyva Hypertension Mother Tesha Leyva Relation Name Status Comments Father Gabo Alive Maternal Grandmother Shruti Leyva Alive Mother Tesha Leyva Alive Social History Tobacco Use Types Packs/Day Years Used Date Smoking Tobacco: Never Passive Smoke Exposure: Never Smokeless Tobacco: Never Tobacco Cessation:Counseling Given: Not Answered Alcohol Use Standard Drinks/Week Comments Never 0 (1 standard drink = 0.6 oz pur e alcohol) PHQ-2 Answer Date Recorded PHQ-2 Total Score (If total score is 3 or more points, staff should administer the PHQ-9) 3 04/12/2025 PHQ-9 Answer Date Recorded PHQ-9 Total Score 17 04/12/2025 AUDIT-C Answer Date Recorded Q1: How often [...] making you feel afraid or unsafe? Denies 03/30/2025 Comments No Sex and Gender Information Value Date Recorded Sex Assigned at Not on file Legal Sex Female 9:06 PM LABORER [employer]ESSING Gender Identity Female 03/05/2025 4:02 PM CDT Sexual Orientation Not on file Obstetrics History Para Term AB IAB SAB Ectopic Multiple Livin g Live Births 1 0 Date Outcome GA Total Labor Labor/2nd/3rd Weight Sex Type Anes PTL Alondra A1 A5 Name Clin Comments Pt states she is elmore s appointment with OB Saturday Last Filed Vital Signs Vital Sign Reading Time Taken Comments Blood Pressure 124/82 04/12/2025 12:41 PM LAB[employer]ER [employer]ESSING Pulse 91 04/12/2025 12:41 PM LAB[employer]ER [employer]ESSING Temperature 36.7 C (98.1 F) 04/12/2025 12:41 PM LAB[employer]ER CHEM[employer] PROCESSING Respiratory Rate 18 04/12/2025 12:41 PM LAB[employer]ER CHEMICAL PROCESSING Oxygen Saturation 99% 04/12/2025 12:41 PM LAB[employer]ER CHEMICAL PROCESSING Inhaled Oxygen Concentration - - Weight 71.3 kg (157 lb 1.6 oz) 04/12/2025 12:41 PM LAB[employer]ER [employer]ESSING Height 157.5 cm (5' 2) 04/12/2025 12:41 PM LAB[employer]ER CHEM[employer] PROCESSING Body Mass Index 28.73 04/12/2025 12:41 PM LAB[employer]ER CHEM[employer]ESSING Plan of Treatment Health Maintenance Due Date Last Done Comments Chlamydia and Gonorrhea (GC/ CT) Screening 2005 Hepatitis C Screening 2005 HPV Vaccines (1 - 3-dose series) 2020 Regular Well Visit/Exam 18-64 2023 Covid-19 Vaccine (3 - 2024-2 6 season) 2025 10/08/2020, 09/17/2020 Influenza Vaccine (#1) 2025 , 07/04/2018, 04/22/2006 Depression Screening 04/12/2026 04/12/2025, 04/12/2025, 03/12/2025, Additional history exists DTaP/Tdap/Td Vaccine (7 - Td or Tdap) 01/15/2027 01/15/2017, 05/09/2009, 07/17/2006, Additional history exists Hepatitis B Screening Completed 2005 , 2005, 2005, Additional history exists Varicella Vaccines Completed 05/09/2009, 04/22/2006 Pneumococcal vaccine <65 Completed 010, 04/22/2006, 2005, Additional history exists Meningococcal Vaccine Completed 04/10/2023 , 03/13/2017, 12/17/2013 Meningococcal B Vaccine Discontinued Procedures Procedure Name Priority Date/Time Associated Diagnosis Comments XR CHEST 1 VIEW ED 03/30/2025 2:38 PM LAB[employer]ER [employer]ESSING ECG 12-LEAD Routine 03/30/2025 2:13 [address] [employer] [address] HEAD WO CONTRAST ED 03/30/2025 2 :05 PM LABORER CHEMICAL PROCESSING POCT HCG, URINE Routine 03/30/2025 1:59 PM LAB[employer]ER CHEMICAL PROCESSING INFLUENZA A/B, RSV, AND COVID-19 PCR STAT 03/30/2025 1:55 PM LABORER CHEMICAL PROCESSING URINALYSIS AND REFLEX TO MICROSCOPIC AND CULTURE STAT 03/30/2025 1:55 PM LAB[employer]ER CHEMICAL PROCESSING EGFR STAT 03/30/2025 1:49 PM LAB[employer]ER CHEMICAL PROCESSING DIFFERENTIAL AUTO STAT 03/30/2025 1:4 9 PM LAB[employer]ER CHEMICAL PROCESSING TSH STAT 03/30/2025 1:49 PM LABORER CHEMICAL PROCESSING MAGNESIUM Routine 03/30/2025 1:49 PM LAB[employer]ER CHEMICAL PROCESSING COMPREHENSIVE METABOLIC PANEL STAT 03/30/2025 1:49 PM LAB[employer]ER CHEMICAL PROCESSING CBC WITH AUTO DIFFERENTIAL STAT 03/30/2025 1:49 PM LABORER CHEMICAL PROCESSING SURGICAL PATHOLOGY Routine 03/16/2025 2: 13 PM LAB[employer]ER CHEMICAL PROCESSING Missed ab SURGICAL TREATMENT MISSED FIRST TRIMESTER [id number] 03/16/2025 2:00 PM LAB[employer]ER CHEMICAL PROCESSING Missed ab URINALYSIS, MICROSCOPIC ONLY STAT 03/14/2025 1:30 AM LABORER CHEMICAL PROCESSING URINALYSIS AND REFLEX TO MICROSCOPIC AND CULTURE STAT 03/14/2025 1:30 AM LABORER CHEMICAL PROCESSING EGFR STAT 03/13/2025 11:00 PM LABORER CHEMICAL PROCESSING DIFFERENTIAL AUTO STAT 03/13/2025 11: 00 PM LABORER CHEMICAL PROCESSING ABO/RH STAT 03/13/2025 11:00 PM LAB[employer]ER CHEMICAL PROCESSING HCG, BLOOD, QUANTITATIVE STAT 03/13/2025 11:00 PM LAB[employer]ER CHEMICAL PROCESSING LIPASE STAT 03/13/2025 11:00 PM LABORER CHEMICAL PROCESSING COMPREHENSIVE METABOLIC PANEL STAT 03/13/2025 11:00 PM LABORER CHEMICAL PROCESSING CBC WITH AUTO DIFFERENTIAL STAT 03/13/2025 11:00 PM LABORER CHEMICAL PROCESSING SURESWAB(R) ADVANCED VAGINITIS PLUS, TMA Routine 03/12/2025 1:52 PM LAB[employer]ER CHEMICAL PROCESSING Chlamydia infection US PELVIS W ENDOVAGINAL Schedule Routine, Read Routine (OP Routine) 03/12/2025 10:01 AM LAB[employer]ER CHEMICAL PROCESSING Spontaneous , incomplete CT CHEST PE W CONTRAST ED 03/06/2025 10:52 PM CDT EGFR STAT 03/06/2025 8:45 PM CDT DIFFERENTIAL AUTO STAT 03/06/2025 8:4 5 PM CDT ANTIBODY SCREEN STAT 03/06/2025 8:45 PM CDT ABO/RH STAT 03/06/2025 8:45 PM CDT TYPE AND SCREEN STAT 03/06/2025 8:45 PM CDT HCG, BLOOD, QUANTITATIVE STAT 03/06/2025 8:45 PM CDT COMPREHENSIVE METABOLIC PANEL STAT 03/06/2025 8:45 PM CDT CBC WITH AUTO DIFFERENTIAL STAT 03/06/2025 8:45 PM CDT XR CHEST PA LATERAL 2 VIEWS ED 02/24/2025 7:11 PM CDT EGFR STAT 02/24/2025 7:04 PM CDT DIFFERENTIAL AUTO STAT 02/24/2025 7:0 4 PM CDT COMPREHENSIVE METABOLIC PANEL STAT 02/24/2025 7:04 PM CDT CBC WITH AUTO DIFFERENTIAL STAT 02/24/2025 7:04 PM CDT URINALYSIS, MICROSCOPIC ONLY STAT 02/17/2025 3:05 PM CDT URINALYSIS AND REFLEX TO MICROSCOPIC AND CULTURE STAT 02/17/2025 3:05 PM CDT US OB UNDER 14 WEEKS W ENDOVAGINAL ED 02/17/2025 3:03 PM CDT US VEIN DUPLEX LOWER EXTREMITY RIGHT LIMITED ED 02/17/2025 3:03 PM CDT EGFR STAT 02/17/2025 1:30 PM CDT DIFFERENTIAL AUTO STAT 02/17/2025 1:3 0 PM CDT ANTIBODY SCREEN Timed 02/17/2025 1:30 PM CDT ABO/RH Timed 02/17/2025 1:30 PM CDT COMPREHENSIVE METABOLIC PANEL STAT 02/17/2025 1:30 PM CDT CBC WITH AUTO DIFFERENTIAL STAT 02/17/2025 1:30 PM CDT HCG, BLOOD, QUANTITATIVE STAT 02/17/2025 1:30 PM CDT TYPE AND SCREEN Timed 02/17/2025 1:30 PM CDT SURESWAB(R) ADVANCED VAGINITIS PLUS, TMA Routine 02/12/2025 7:41 AM CDT Vaginal discharge during in first trimester ECG 12-LEAD Routine 01/22/2025 2:17 PM CDT US OB UNDER 14 WEEKS ED 01/21/2025 5:56 PM CDT EGFR STAT 01/21/2025 4:05 PM CDT HCG, URINE, QUALITATIVE Timed 01/21/2025 4:05 PM CDT URINALYSIS, MICROSCOPIC ONLY STAT 01/21/2025 4:05 PM CDT DIFFERENTIAL AUTO STAT 01/21/2025 4:0 5 PM CDT DRUGS OF ABUSE SCREEN, URINE WITHOUT CONFIRMATION STAT 01/21/2025 4:05 PM CDT TSH STAT 01/21/2025 4:05 PM CDT HCG, BLOOD, QUANTITATIVE STAT 01/21/2025 4:05 PM CDT CBC WITH AUTO DIFFERENTIAL STAT 01/21/2025 4:05 PM CDT COMPREHENSIVE METABOLIC PANEL STAT 01/21/2025 4:05 PM CDT URINALYSIS AND REFLEX TO MICROSCOPIC AND CULTURE STAT 01/21/2025 4:05 PM CDT ECG 12-LEAD Routine 01/21/2025 2:54 PM CDT from Last 3 Months Results * XR Chest 1 Vw Portable (03/30/2025 2:38 PM LABORER [employer]ESSING) Anatomical Region Laterality Modality Body, Chest N/A Computed Radiogr aphy 03/30/2025 2:42 PM LAB[employer]ER CHEMICAL PROCESSING Impressions 03/30/2025 2:42 PM LABORER CHEMICAL PROCESSING Central vascularity are not enlarged. Aortic arch well-defined on the left. Lungs are well expanded without consolidation, effusion or pneumothorax. Electronically signed by: Stanley Woodard M.D. Narrative 03/30/2025 2:42 PM LABORER CHEMICAL PROCESSING EXAMINATION: 1 view chest radiograph Lightheaded for 3 days. Procedure Note Stanley Woodard MD - 03/30/2025 EXAMINATION: 1 view chest radiograph Lightheaded for 3 days. IMPRESSION: Central vascularity are not enlarged. Aortic arch well-defined on the left. Lungs are well expanded without consolidation, effusion or pneumothorax. Electronically signed by: Stanley Woodard M.D. [facility] IMG XR PROCEDURES Final Result * ECG 12 lead (03/30/2025 2:13 PM LABORER CHEMICAL PROCESSING) 03/30/2025 2:13 PM LABORER CHEMICAL PROCESSING Narrative [facility] - 03/30/2025 10:01 PM LABORER CHEMICAL PROCESSING Vent Rate: 97 bpm RR Interval: 616 msec IN Interval: 123 msec QRS Duration: 85 msec QT Interval: 328 msec QTC Interval: 382 msec P-R-T [place]: 52 - 21 - 38 degrees IMPRESSION: SINUS RHYTHM MINIMAL VOLTAGE CRITERIA FOR LVH, CONSIDER NORMAL VARIANT [MEETS CRITERIA IN ONE OF: R(aVL), S(V1), R(V5), R(V5/V6)+S(V1)] NONSPECIFIC T-WAVE ABNORMALITY BORDERLINE ECG NO CHANGE FROM PREVIOUS TRACING NOTED Electronically Signed By: Smooth Do MD [facility] ECG ORDERABLES Final Result [facility] * CT Head WO Contrast (03/30/2025 2:05 PM LABORER CHEMICAL PROCESSING) Anatomical Region Laterality Modality Head and Neck N/A Computed Tomogra phy 03/30/2025 2:12 PM LAB[employer]ER CHEMICAL PROCESSING Addenda Addendum by Spencer Campuzano MD on 04/13/2025 9:29 AM LAB[employer]ER CHEMICAL PROCESSING EXTRA-AXIAL SPACES: Should read: No extra-axial fluid collection. No CT evidence of extra-axial mass. Electronically signed by: Spencer Campuzano M.D. Impressions 03/30/2025 2:12 PM LAB[employer]ER CHEMICAL PROCESSING No acute intracranial process. Electronically signed by: Spencer Campuzano M.D. Narrative 03/30/2025 2:12 PM LABORER CHEMICAL PROCESSING EXAMINATION: CT HEAD WO CONTRAST REASON FOR STUDY: Acute dizziness with right facial tingling for 3 days. No provided history of trauma or inciting at/or aggravating events. TECHNIQUE: Axial images acquired through the brain without intravenous contrast. Coronal and sagittal reformatted images acquired and reviewed. Automated exposure control was used as a dose optimization technique for this examination. Images saved to PACS. COMPARISON: No prior neuroimaging available at time of interpretation. FINDINGS: BRAIN: No acute intra-axial hemorrhage. No edema, mass effect, midline shift, or herniation. No evidence of acute territorial ischemia/infarct. White matter unremarkable. EXTRA-AXIAL SPACES: No extra-axial fluid collection. No CT evidence of extra-axial mass. There is cerebral and cerebellar volume loss. There is calcific atherosclerosis of the intracranial arterial vasculature. CALVARIUM: No acute calvarial fracture. SINUSES/MASTOIDS: No significant mucosal thickening and no fluid levels of the visualized paranasal sinuses. The mastoid air cells are well-developed and well aerated. IACs symmetric, grossly normal. ORBITS: No acute abnormality. Ocular lenses and globes normal in conformation and position. OTHER: None. Procedure Note Spencer Campuzano MD - 03/30/2025 EXAMINATION: CT HEAD WO CONTRAST REASON FOR STUDY: Acute dizziness with right facial tingling for 3 days. No provided history of trauma or inciting at/or aggravating events. TECHNIQUE: Axial images acquired through the brain without intravenous contrast. Coronal and sagittal reformatted images acquired and reviewed. Automated exposure control was used as a dose optimization technique for this examination. Images saved to PACS. COMPARISON: No prior neuroimaging available at time of interpretation. FINDINGS: BRAIN: No acute intra-axial hemorrhage. No edema, mass effect, midline shift, or herniation. No evidence of acute territorial ischemia/infarct. White matter unremarkable. EXTRA-AXIAL SPACES: No extra-axial fluid collection. No CT evidence of extra-axial mass. There is cerebral and cerebellar volume loss. There is calcific atherosclerosis of the intracranial arterial vasculature. CALVARIUM: No acute calvarial fracture. SINUSES/MASTOIDS: No significant mucosal thickening and no fluid levels of the visualized paranasal sinuses. The mastoid air cells are well-developed and well aerated. IACs symmetric, grossly normal. ORBITS: No acute abnormality. Ocular lenses and globes normal in conformation and position. OTHER: None. IMPRESSION: No acute intracranial process. Electronically signed by: Spencer Campuzano M.D. [facility] IMG CT PROCEDURES Edited Result - Final * POCT hCG, urine (03/30/2025 1:59 PM LABORER CHEMICAL PROCESSING) HCG, ur, POC Negative Negative Lot Number [id number] QC Backgroud Clear Acceptable QC Control Line Acceptable Urine 03/30/2025 1:59 PM LABORER CHEMICAL PROCESSING Result [facility] POINT OF CARE TEST ORDERABLES F inal Result * Influenza A/B, RSV, and COVID-19 PCR Nasopharyngeal (03/30/2025 1:55 PM LABORER CHEMICAL PROCESSING) Pathologist [facility] COVID-19 RNA Negative Negative Influenza A RNA Negative Negative [facility] ([facility]) Influenza B RNA Negative Negative [facility] ([facility]) RSV RNA Negative Negative [facility] ([facility]) Comment: Interpretive data: Testing performed by [facility]. This test is performed using the [employer] Xpert Xpress CoV-2/Flu/RSV plus assay. This is a multiplex, real- time reverse transcriptase PCR assay intended for the qualitative detection of nucleic acid from SARS-CoV-2, influenza A, influenza B, and respiratory syncytial virus. This assay has been cleared by the [place] Food and Drug administration. The performance characteristics have been verified by the [facility]. Results must be considered in the clinical context, and a negative result does not rule out infection. Interpretive Data last revised 2023 Nasopharyngeal 03/30/2025 1: 55 PM LABORER CHEMICAL PROCESSING 03/30/2025 2:03 PM LABORER CHEMICAL PROCESSING Narrative [facility] ([place]) - 03/30/2025 2:44 PM LABORER CHEMICAL PROCESSING Is the Patient experiencing symptoms consistent with COVID?->Unknown Kailey TRINH LAB MICROBIOLOGY - GENERAL ORDE RABLES Final Result [facility] ([place]) 1 [facility] [place] [address] * Urinalysis reflex to microscopic and culture Urine (03/30/2025 1:55 PM LABORER CHEMICAL PROCESSING) Color, ur Straw Yellow Clarity, ur Clear Clear [facility] ([place]) Specific gravity, ur 1.003 1.003 - 1.030 [facility] ([place]) pH, urine 7.0 [facility] ([place]) Comment: Interpretive Data U rine pH is affected by diet, medications, systemic acid-base disturbances, and renal tubular function. pH may affect urinary stone formation. For example, urine pH below 6.0 may help reduce the tendency for calcium phosphate stones and pH greater than 6.0 may reduce the tendency for uric acid stone formation. Source: [facility] [employer] Current Interpretive Data was last revised on 2017 Protein, ur ql Negative Negative [facility] ([place]) Glucose, ur ql Negative Negative [facility] ([place]) Ketones, ur Negative Negative [facility] ([place]) Bilirubin, ur Negative Negative [facility] ([place]) Blood, ur Negative Negative [facility] ([place]) Urobilinogen, ur <2.0 <2.0 mg/dL [facility] ([place]) Nitrite, ur Negative Negative [facility] ([place]) Leukocyte esterase, ur Negative Negative [facility] ([place]) UA reflex comment Reflex conditions for microscopic UA and culture not met. [facility] ([place]) Urine 03/30/2025 1:55 PM LABORER CHEMICAL PROCESSING 03/30/2025 2:03 PM LABORER CHEMICAL PROCESSING us Kailey TRINH LAB MICROBIOLOGY - GENERAL FEDERICO JAMES Final Result [facility] ([place]) 1 [facility] [place] [address] * eGFR (03/30/2025 1:49 PM LABORER CHEMICAL PROCESSING) eGFR >90 >=60 mL/min/1. 73 m2 Comment: Interpretive Data Reference Interval Normal >/= 90 mL/min/1.73m2 Mildly decreased* 60 - 89 mL/min/1.73m2 Mildly to moderately decreased 45 - 59 mL/min/1.73m2 Moderately to severely decreased 30 - 44 mL/min/1.73m2 Severely decreased 15 - 29 mL/min/1.73m2 Kidney Failure < 15 mL/min/1.73m2 *Relative to young adult level Estimated glomerular filtration rate is determined by the 2020 CKD-EPI equation recommended by the National Kidney Foundation (A Unifying Approach to GFR Estimation: Recommendations of the NKF-ASK Task Force on Reassessing the Inclusion of Race in Diagnosing Kidney Disease, JASN 2020). The CKD-EPI equation should not be used for patients with unstable renal function and has not been validated in children and those over 70. Current interpretive data was last reviewed 2021. Blood 03/30/2025 1:49 PM LABORER CHEMICAL PROCESSING 03/30/2025 1:51 PM LABORER CHEMICAL PROCESSING us Kailey TRINH LAB BLOOD ORDERABLES Final Resu lt [facility] ([place]) 1 [facility] Department of Laboratories [place], [place] [id number] * Differential, auto (03/30/2025 1:49 PM LABORER CHEMICAL PROCESSING) Neutrophil abs 3.67 1.50 - 6.50 K/cumm Imm gran abs 0.02 0.00 - 0.10 K/cumm [facility] ([place]) Lymphocyte abs 1.83 0.80 - 3.30 K/cumm [facility] ([place]) Monocyte abs 0.47 0.20 - 0.80 K/cumm [facility] ([place]) Eosinophil abs 0.12 0.00 - 0.50 K/cumm [facility] ([place]) Basophil abs 0.04 0.00 - 0.10 K/cumm [facility] ([place]) Neutrophil pct 59.6 % [facility] ([place]) Comment: Interpretive Data Percent cell count reference ranges are not reported, since discordance with absolute values may lead to misinterpretation of CBC data. Current Interpretive Data was last revised on 2017. Imm gran pct 0.3 % [facility] ([place]) Comment: Interpretive Data Percent cell count reference ranges are not reported, since discordance with absolute values may lead to misinterpretation of CBC data. Current Interpretive Data was last revised on 2017. Lymphocyte pct 29.8 % [facility] ([place]) Comment: Interpretive Data Percent cell count reference ranges are not reported, since discordance with absolute values may lead to misinterpretation of CBC data. Current Interpretive Data was last revised on 2017. Monocyte pct 7.6 % [facility] ([place]) Comment: Interpretive Data Percent cell count reference ranges are not reported, since discordance with absolute values may lead to misinterpretation of CBC data. Current Interpretive Data was last revised on 2017. Eosinophil pct 2.0 % [facility] ([place]) Comment: Interpretive Data Percent cell count reference ranges are not reported, since discordance with absolute values may lead to misinterpretation of CBC data. Current Interpretive Data was last revised on 2017. Basophil pct 0.7 % [facility] ([place]) Comment: Interpretive Data Percent cell count reference ranges are not reported, since discordance with absolute values may lead to misinterpretation of CBC data. Current Interpretive Data was last revised on 2017. Blood 03/30/2025 1:49 PM LABORER CHEMICAL PROCESSING 03/30/2025 1:51 PM LABORER CHEMICAL PROCESSING us Kailey TRINH LAB BLOOD ORDERABLES Final Resu lt [facility] ([place]) 1 [facility] Department [place] [address] * CBC with auto differential (03/30/2025 1:49 PM LABORER CHEMICAL PROCESSING) WBC 6.15 3.80 - 9.90 K/cumm Hgb 13.2 11.9 - 15.5 g/dL [facility] ([place]) Hct 40.1 35.6 - 45.5 % [facility] ([place]) Plt 314 150 - 400 K/cumm [facility] ([place]) MPV 10.5 9.1 - 12.3 fL [facility] ([place]) RBC 4.63 3.90 - 5.20 M/cumm [facility] ([place]) MCV 86.6 81.3 - 96.4 fL [facility] ([place]) MCH 28.5 27.1 - 33.3 pg [facility] ([place]) MCHC 32.9 32.3 - 35.7 g/dL [facility] ([place]) RDW CV 12.5 11.1 - 14.9 % [facility] ([place]) RDW SD 39.3 35.7 - 48.1 fL [facility] ([place]) NRBC abs 0.00 0.00 - 0.01 K/cumm [facility] ([place]) Blood 03/30/2025 1:49 PM LABORER CHEMICAL PROCESSING 03/30/2025 1:51 PM LABORER CHEMICAL PROCESSING Kailey TRINH LAB BLOOD ORDERABLES Final Resu lt [facility] ([place]) 1 [facility] [place] [address] * TSH (03/30/2025 1:49 PM LABORER CHEMICAL PROCESSING) Thyroid Stimulating Hormone 0.59 0.30 - 4.20 mcIUnit/mL Blood 03/30/2025 1:49 PM LABORER CHEMICAL PROCESSING 03/30/2025 1:51 PM LABORER CHEMICAL PROCESSING Kailey TRINH LAB BLOOD ORDERABLES Final Resu lt [facility] ([place]) 1 [facility] [place] [address] * Magnesium (03/30/2025 1:49 PM LABORER CHEMICAL PROCESSING) Magnesium 2.0 1.4 - 2.5 mg/dL Blood 03/30/2025 1:49 PM LABORER CHEMICAL PROCESSING 03/30/2025 1:51 PM LABORER CHEMICAL PROCESSING us Kailey TRINH LAB BLOOD ORDERABLES Final Resu lt [facility] ([place]) 1 [facility] Department [place] [address] * (ABNORMAL) Comprehensive metabolic panel (03/30/2025 1:49 PM LABORER CHEMICAL PROCESSING) Sodium 138 135 - 145 mmol/L Potassium, pl 3.9 3.3 - 4.9 mmol/L [facility] ([place]) Chloride 101 97 - 110 mmol/L [facility]) CO2 26 22 - 32 mmol/L [facility]) Anion gap 11 2 - 15 mmol/L [facility]) BUN 5(L) 6 - 25 mg/dL [facility]) Creatinine 0.74 0.60 - 1.10 mg/dL [facility]) Glucose 111 70 - 199 mg/dL [facility] ([place]) Comment: Interpretive Data Fasting glucose >/= 126 mg/dl is diagnostic for diabetes. Fasting is defined as no caloric intake for at least 8 hours. Fasting glucose between 100 mg/dl to 125 mg/dl is diagnostic of prediabetes. In a patient with classic symptoms of hyperglycemia or hyperglycemic crisis, a random glucose >/= 200 mg/dl is diagnostic for diabetes. In the absence of unequivocal hyperglycemia, results should be confirmed by repeat testing. The classification and Diagnosis of Diabetes Diabetes Care 2021; 46: S19-S40. Current interpretive data was last revised 2022. Calcium 10.0 8.5 - 10.3 mg/dL [facility] ([place]) Bilirubin, total 0.6 0.1 - 1.2 mg/dL [facility] ([place]) Protein, pl 6.9 6.5 - 8.5 g/dL [facility] ([place]) Albumin 4.4 3.5 - 5.0 g/dL [facility] ([place]) Alk phos 56(L) 70 - 260 Units/L [facility] ([place] ALT 16 7 - 45 Units/L [facility]) AST 18 10 - 45 Units/L [facility] ([place]) Blood 03/30/2025 1:49 PM LABORER CHEMICAL PROCESSING 03/30/2025 1:51 PM LABORER CHEMICAL PROCESSING us Kailey TRINH LAB BLOOD ORDERABLES Final Resu lt [facility] [place]) 1 [facility] Department [place] [address] * Surgical pathology (03/16/2025 2:13 PM LABORER CHEMICAL PROCESSING) Tissue (Retained POC) 03/16/2025 2:13 PM LABORER CHEMICAL PROCESSING Narrative PATHOLOGY [facility] - 03/17/2025 11:16 AM LABORER CHEMICAL PROCESSING [address] [address] Tele: Rosaura Pitts MD - Processing Clerk Note to Patients: This report may contain a detailed description of human tissue sent by a health care provider to the laboratory for pathologic evaluation. The content of this report is essential for diagnosis and may provide important critical findings. This information may be unfamiliar to patients to review without a medical professional present. It is advised that the patient review this report in the presence of a health care provider who can answer questions and explain the details. 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 Report Reviewed and Electronically Signed By Kristi Covarrubias M.D. SPECIMEN TYPE: A: POC CLINICAL IMPRESSION AND HISTORY: Missed GROSS DESCRIPTION: Received in formalin labeled with LISSET LEYVA and POC are multiple pieces of red and carrasco tissue and blood measuring 6.3 x 3.8 x 0.9 cm in aggregate. No parts are identified. The specimen is entirely submitted in cassettes labeled A1-A2. [facility]/03/16/2025 15:52 [facility] MICROSCOPIC DESCRIPTION: Microscopic examination supports the above captioned diagnosis. Clerical Data Follows A; 69216 REPORT IMAGES AND/OR SCANNED DOCUMENTS ONLY VIEWABLE IN PDF FORMAT The immunohistochemical test(s) cited in this report, if any, was developed and its performance characteristics determined by [facility] Pathology Department. It has not been cleared or approved by the U.S. Food and Drug Administration. The FDA has determined that such clearance or approval is not necessary. This test is used for clinical purposes. It should not be regarded as investigational or for research. [facility] Laboratory is certified under the Clinical Laboratory Improvement Amendments of 1988 (CLIA) as qualified to perform high complexity testing. Immunostains were performed on formalin-fixed paraffin embedded tissue using a polymer diaminobenzidine chromogen detection system. Antibodies used may include clone SP1 (rabbit monoclonal, estrogen receptor), clone 1E2 (rabbit monoclonal progesterone receptor), Ki-67 (rabbit monoclonal, 30-9), CD117 (rabbit polyclonal, c-kit), and anti-Her-2/sara (4B5) (rabbit monoclonal primary antibody). In the event that immunohistochemistry or special stains have been performed, attending physician has confirmed appropriateness of controls. Frozen section, operating room consultation, gross examination and dissection, and case sign out may have been performed in part or completely in the following laboratories: [facility], [address] [place] [address], [address] [place] [address], [place] [address]. Juan Ramires MD LAB PATHOLOGY ORDERABLES Efren al Result PATHOLOGY [facility] Laboratory Receiving [address] [place] [address] * (ABNORMAL) Urinalysis reflex to microscopic and culture Urine (03/14/2025 1:30 AM LABORER CHEMICAL PROCESSING) Color, ur Yellow Yellow Clarity, ur Clear Clear [facility] ([place]) Specific gravity, ur 1.013 1.003 - 1.030 [facility] ([place]) pH, urine 8.0 [facility] ([place]) Comment: Interpretive Data U rine pH is affected by diet, medications, systemic acid-base disturbances, and renal tubular function. pH may affect urinary stone formation. For example, urine pH below 6.0 may help reduce the tendency for calcium phosphate stones and pH greater than 6.0 may reduce the tendency for uric acid stone formation. Source: [facility] Current Interpretive Data was last revised on 2017 Protein, ur ql Negative Negative [facility] ([place]) Glucose, ur ql Negative Negative [facility] ([place]) Ketones, ur Negative Negative [facility] ([place]) Bilirubin, ur Negative Negative [facility] ([place]) Blood, ur Trace(A) Negative [facility] ([place]) Urobilinogen, ur <2.0 <2.0 mg/dL [facility] ([place]) Nitrite, ur Negative Negative [facility] ([place]) Leukocyte esterase, ur Negative Negative [facility] ([place]) UA reflex comment Reflex to microscopic UA will be performed. [facility] ([place]) Urine 03/14/2025 1:30 AM LABORER CHEMICAL PROCESSING 03/14/2025 1:33 AM LABORER CHEMICAL PROCESSING us Zion Gallo MD LAB MICROBIOLOGY - GENERAL ORDERABLES Final Result [facility] ([place]) 1 [facility] Department [place] [address] * (ABNORMAL) Urinalysis, microscopic only (03/14/2025 1:30 AM LABORER CHEMICAL PROCESSING) WBC, ur 0-5 0 - 5 /HPF RBC, ur 0-2 0 - 2 /HPF [facility] ([place]) Epithelial cells, squamous, ur 1-5 0 - 5 /HPF [facility] ([place]) Bacteria, ur Trace(A) [facility] ([place]) Mucous, ur Present(A) [facility] ([place]) Culture Reflex Comment Reflex conditions for urine culture (WBC >10) not met. [facility] ([place]) Urine 03/14/2025 1:30 AM LABORER CHEMICAL PROCESSING 03/14/2025 1:33 AM LABORER CHEMICAL PROCESSING Zion Gallo MD LAB URINE ORDERABLES Final Result [facility] [place] 1 [facility] [employer] [place] [address] * eGFR (03/13/2025 11:00 PM LABORER CHEMICAL PROCESSING) eGFR >90 >=60 mL/min/1. 73 m2 Comment: Interpretive Data Reference Interval Normal >/= 90 mL/min/1.73m2 Mildly decreased* 60 - 89 mL/min/1.73m2 Mildly to moderately decreased 45 - 59 mL/min/1.73m2 Moderately to severely decreased 30 - 44 mL/min/1.73m2 Severely decreased 15 - 29 mL/min/1.73m2 Kidney Failure < 15 mL/min/1.73m2 *Relative to young adult level Estimated glomerular filtration rate is determined by the 2020 CKD-EPI equation recommended by the National Kidney Foundation (A Unifying Approach to GFR Estimation: Recommendations of the NKF-ASK Task Force on Reassessing the Inclusion of Race in Diagnosing Kidney Disease, JASN 2020). The CKD-EPI equation should not be used for patients with unstable renal function and has not been validated in children and those over 70. Current interpretive data was last reviewed 2021. Blood 03/13/2025 11:0 0 PM LABORER CHEMICAL PROCESSING 03/13/2025 11:58 PM LABORER CHEMICAL PROCESSING Zion Gallo MD LAB BLOOD ORDERABLES Final Result [facility] [place] 1 [facility] Department [place] [address] * Differential, auto (03/13/2025 11:00 PM LABORER CHEMICAL PROCESSING) Neutrophil abs 4.03 1.50 - 6.50 K/cumm Imm gran abs 0.04 0.00 - 0.10 K/cumm [facility] ([place]) Lymphocyte abs 2.26 0.80 - 3.30 K/cumm [facility] ([place]) Monocyte abs 0.52 0.20 - 0.80 K/cumm [facility] ([place]) Eosinophil abs 0.19 0.00 - 0.50 K/cumm [facility] ([place]) Basophil abs 0.04 0.00 - 0.10 K/cumm [facility] ([place]) Neutrophil pct 56.9 % [facility] ([place]) Comment: Interpretive Data Percent cell count reference ranges are not reported, since discordance with absolute values may lead to misinterpretation of CBC data. Current Interpretive Data was last revised on 2017. Imm gran pct 0.6 % [facility] ([place]) Comment: Interpretive Data Percent cell count reference ranges are not reported, since discordance with absolute values may lead to misinterpretation of CBC data. Current Interpretive Data was last revised on 2017. Lymphocyte pct 31.9 % [facility] ([place]) Comment: Interpretive Data Percent cell count reference ranges are not reported, since discordance with absolute values may lead to misinterpretation of CBC data. Current Interpretive Data was last revised on 2017. Monocyte pct 7.3 % [facility] ([place]) Comment: Interpretive Data Percent cell count reference ranges are not reported, since discordance with absolute values may lead to misinterpretation of CBC data. Current Interpretive Data was last revised on 2017. Eosinophil pct 2.7 % [facility] ([place]) Comment: Interpretive Data Percent cell count reference ranges are not reported, since discordance with absolute values may lead to misinterpretation of CBC data. Current Interpretive Data was last revised on 2017. Basophil pct 0.6 % [facility] ([place]) Comment: Interpretive Data Percent cell count reference ranges are not reported, since discordance with absolute values may lead to misinterpretation of CBC data. Current Interpretive Data was last revised on 2017. Blood 03/13/2025 11:0 0 PM LABORER CHEMICAL PROCESSING 03/13/2025 11:19 PM LABORER CHEMICAL PROCESSING Zion Gallo MD LAB BLOOD ORDERABLES Final Result [facility] ([place]) 1 [facility] [place] [place] [address] * CBC with auto differential (03/13/2025 11:00 PM LABORER CHEMICAL PROCESSING) WBC 7.08 3.80 - 9.90 K/cumm Hgb 13.1 11.9 - 15.5 g/dL [facility] ([place]) Hct 39.0 35.6 - 45.5 % [facility] ([place]) Plt 383 150 - 400 K/cumm [facility] ([place]) MPV 10.2 9.1 - 12.3 fL [facility] ([place]) RBC 4.55 3.90 - 5.20 M/cumm [facility] ([place]) MCV 85.7 81.3 - 96.4 fL [facility] ([place]) MCH 28.8 27.1 - 33.3 pg [facility] ([place]) MCHC 33.6 32.3 - 35.7 g/dL [facility] ([place]) RDW CV 12.9 11.1 - 14.9 % [facility]) RDW SD 39.8 35.7 - 48.1 fL [facility] ([place]) NRBC abs 0.00 0.00 - 0.01 K/cumm [facility] ([place]) Blood Venous blood specimen / Unknown 03/13/2025 11:00 PM LABORER CHEMICAL PROCESSING 03/13/2025 11:19 PM LABORER CHEMICAL PROCESSING Zion Gallo MD LAB BLOOD ORDERABLES Final Result [facility] ([place]) 1 [facility] [employer] [place] [address] * ABO/Rh (03/13/2025 11:00 PM LABORER CHEMICAL PROCESSING) ABO/Rh A Positive Blood 03/13/2025 11:0 0 PM LABORER CHEMICAL PROCESSING 03/13/2025 11:19 PM LABORER CHEMICAL PROCESSING Zion Gallo MD LAB BLOOD BANK TEST ORDERAB LES Final Result Performing Organization Address City/[facility] Co de Phone Number [facility] ([place]) 1 [facility] [place] [place] [address] * (ABNORMAL) hCG, blood, quantitative (03/13/2025 11:00 PM LABORER CHEMICAL PROCESSING) [facility] hCG, quant 169.0(H) 0.0 - 5.0 IUnits/L Comment: Interpretive Data Male: < 5 IU/L Non- premenopausal Female: <5 IU/L The Marcia hCG Beta Quant assay procedure was used. Results from different manufacturers or methods may not be comparable. Serial testing should be performed using the same method. Interpretive Data was last revised on 2023 Blood 03/13/2025 11:0 0 PM LABORER CHEMICAL PROCESSING 03/13/2025 11:19 PM LABORER CHEMICAL PROCESSING Zion Gallo MD LAB BLOOD ORDERABLES Final Result Performing Organization Address City/[facility] Co de Phone Number [facility] ([place]) 1 [facility] [place] [address] * Lipase (03/13/2025 11:00 PM LABORER CHEMICAL PROCESSING) [facility] Lipase 62 10 - 99 Units/L Blood Venous blood specimen / Unknown 03/13/2025 11:00 PM LABORER CHEMICAL PROCESSING 03/13/2025 11:58 PM LABORER CHEMICAL PROCESSING Zion Gallo MD LAB BLOOD ORDERABLES Final Result [facility] ([place]) 1 [facility] [place] [address] * (ABNORMAL) Comprehensive metabolic panel (03/13/2025 11:00 PM LABORER CHEMICAL PROCESSING) [facility] Sodium 138 135 - 145 mmol/L Potassium, pl 3.4 3.3 - 4.9 mmol/L [facility] ([place]) Chloride 102 97 - 110 mmol/L [facility] CO2 27 22 - 32 mmol/L [facility] Anion gap 9 2 - 15 mmol/L [facility] BUN 7 6 - 25 mg/dL [facility]) Creatinine 0.75 0.60 - 1.10 mg/dL [facility]) Glucose 89 70 - 199 mg/dL [facility] ([place]) Comment: Interpretive Data Fasting glucose >/= 126 mg/dl is diagnostic for diabetes. Fasting is defined as no caloric intake for at least 8 hours. Fasting glucose between 100 mg/dl to 125 mg/dl is diagnostic of prediabetes. In a patient with classic symptoms of hyperglycemia or hyperglycemic crisis, a random glucose >/= 200 mg/dl is diagnostic for diabetes. In the absence of unequivocal hyperglycemia, results should be confirmed by repeat testing. The classification and Diagnosis of Diabetes Diabetes Care 2021; 46: S19-S40. Current interpretive data was last revised 2022. Calcium 9.7 8.5 - 10.3 mg/dL [facility]) Bilirubin, total 0.3 0.1 - 1.2 mg/dL [facility] ([place]) Protein, pl 6.9 6.5 - 8.5 g/dL [facility] ([place]) Albumin 4.5 3.5 - 5.0 g/dL [facility] ([place]) Alk phos 58(L) 70 - 260 Units/L [facility] ALT 15 7 - 45 Units/L [facility] ([place] AST 18 10 - 45 Units/L [facility]) Blood 03/13/2025 11:0 0 PM LABORER CHEMICAL PROCESSING 03/13/2025 11:58 PM LABORER CHEMICAL PROCESSING us Zion Gallo MD LAB BLOOD ORDERABLES Final Result [facility] ([place]) 1 [facility] Department [place] [address] * Sureswab(R) Advanced Vaginitis Plus, TMA Vaginal (03/12/2025 1:52 PM LABORER CHEMICAL PROCESSING) SureSwab(R) ADV Bacterial vaginosis (BV), TMA NEGATIVE NEGATIVE [facility] Kristal species NOT DETECTED NOT DETECTED [facility] Kristal glabrata NOT DETECTED NOT DETECTED [facility] Comment: Kristal species C. albicans, C. tropicalis, C. parapsilosis, and/or C. dubliniensis can be detected, but not differentiated, in the Kristal spp. result. Trichomonas vaginalis (TV), TMA NOT DETECTED NOT DETECTED [facility] C. trachomatis RNA NOT DETECTED NOT DETECTED [facility] N. gonorrhoeae RNA NOT DETECTED NOT DETECTED [facility] Comment: For additional information, please refer to https://education.DineInTime/faq/DSB376 (This link is being provided for information/ educational purposes only.) Vaginal 03/12/2025 1:52 PM LABORER CHEMICAL PROCESSING 03/13/2025 4:47 AM LABORER CHEMICAL PROCESSING Mani Vincent DO LAB MICROBIOLOGY - GENERAL OR DERABLES Final Result [facility] [address] [place] [address] * US Pelvis W Endovaginal (03/12/2025 10:01 AM LABORER CHEMICAL PROCESSING) Pathologist [facility] Endometrial Thickness 19.2 mm&millime ters [facility] Anatomical Region Laterality Modality Pelvis N/A Ultrasound 03/12/2025 10:0 3 AM LABORER CHEMICAL PROCESSING Impressions 03/12/2025 2:44 PM LABORER CHEMICAL PROCESSING The uterus is anteverted and normal in size and morphology. The endometrial thickness measured 19.2 mm. EMC appeared to have non-uniform echogenicity: heterogeneous background with irregular cystic areas. Increased vascularity noted on color doppler. Sonographic evidence suggests retained products of conception. Normal sized, and morphologically normal appearing ovaries were found in each adnexa. There was no evidence of free fluid in the pelvis or other pelvic masses. Narrative Procedure Note Juan Ramires MD - 03/12/2025 IMPRESSION: The uterus is anteverted and normal in size and morphology. The endometrial thickness measured 19.2 mm. EMC appeared to havenon-uniform echogenicity: heterogeneous background with irregular cysticareas. Increased vascularity noted on color doppler. Sonographic evidencesuggests retained products of conception. Normal sized, and morphologically normal appearing ovaries were found ineach adnexa. There was no evidence of free fluid in the pelvis or other pelvic masses. us Juan Ramires MD IMG US PROCEDURES Final Resu lt * CT Chest PE (CTA) W Contrast (03/06/2025 10:52 PM CDT) Anatomical Region Laterality Modality Body N/A Computed Tomogra phy 03/06/2025 10:5 5 PM CDT Impressions 03/06/2025 10:55 PM CDT No acute process is seen. Electronically signed by: Alexandru Polanco M.D. Narrative 03/06/2025 10:55 PM CDT MEDICAL RECORDS NUMBER: [id number] PROCEDURE: CT CHEST PE (CTA) W CONTRAST Date: 03/06/2025 10:45 PM HISTORY: 19 years old Female. Chest pain, tachycardia, post elective abortions IV Contrast: Optiray 350, 75 cc MIP reconstruction images are provided COMPARISON: None RADIATION DOSE INFORMATION: Automated exposure control dose reduction techniques were used. . FINDINGS: No filling defects are seen within the pulmonary vasculature to suggest the presence of pulmonary embolus. The lungs are clear. The mediastinal structures appear unremarkable. No lymphadenopathy is seen. Major vessels appear to be intact. The skeletal structures appear unremarkable. Incidentally imaged upper abdominal organs appear unremarkable. Procedure Note Alexandru Polanco MD - 03/06/2025 MEDICAL RECORDS NUMBER: [id number] PROCEDURE: CT CHEST PE (CTA) W CONTRAST Date: 03/06/2025 10:45 PM HISTORY: 19 years old Female. Chest pain, tachycardia, post elective abortions IV Contrast: Optiray 350, 75 cc MIP reconstruction images are provided COMPARISON: None RADIATION DOSE INFORMATION: Automated exposure control dose reduction techniques were used. . FINDINGS: No filling defects are seen within the pulmonary vasculature to suggest the presence of pulmonary embolus. The lungs are clear. The mediastinal structures appear unremarkable. No lymphadenopathy is seen. Major vessels appear to be intact. The skeletal structures appear unremarkable. Incidentally imaged upper abdominal organs appear unremarkable. IMPRESSION: No acute process is seen. Electronically signed by: Alexandru Polanco M.D. Masoud TRINH IMG CT PROCEDURE S Final Result * eGFR (03/06/2025 8:45 PM CDT) eGFR >90 >=60 mL/min/1. 73 m2 Comment: Interpretive Data Reference Interval Normal >/= 90 mL/min/1.73m2 Mildly decreased* 60 - 89 mL/min/1.73m2 Mildly to moderately decreased 45 - 59 mL/min/1.73m2 Moderately to severely decreased 30 - 44 mL/min/1.73m2 Severely decreased 15 - 29 mL/min/1.73m2 Kidney Failure < 15 mL/min/1.73m2 *Relative to young adult level Estimated glomerular filtration rate is determined by the 2020 CKD-EPI equation recommended by the National Kidney Foundation (A Unifying Approach to GFR Estimation: Recommendations of the NKF-ASK Task Force on Reassessing the Inclusion of Race in Diagnosing Kidney Disease, JASN 2020). The CKD-EPI equation should not be used for patients with unstable renal function and has not been validated in children and those over 70. Current interpretive data was last reviewed 2021. Blood 03/06/2025 8:45 PM CDT 03/06/2025 8:50 PM CDT us Zion Gallo MD LAB BLOOD ORDERABLES Final Result [facility] ([place]) 1 [facility] Department [place] [address] * Differential, auto (03/06/2025 8:45 PM CDT) Neutrophil abs 4.99 1.50 - 6.50 K/cumm Imm gran abs 0.02 0.00 - 0.10 K/cumm [facility] ([place]) Lymphocyte abs 1.90 0.80 - 3.30 K/cumm [facility] ([place]) Monocyte abs 0.49 0.20 - 0.80 K/cumm [facility] ([place]) Eosinophil abs 0.13 0.00 - 0.50 K/cumm [facility] ([place]) Basophil abs 0.05 0.00 - 0.10 K/cumm [facility] ([place]) Neutrophil pct 65.7 % [facility] ([place]) Comment: Interpretive Data Percent cell count reference ranges are not reported, since discordance with absolute values may lead to misinterpretation of CBC data. Current Interpretive Data was last revised on 2017. Imm gran pct 0.3 % [facility] ([place]) Comment: Interpretive Data Percent cell count reference ranges are not reported, since discordance with absolute values may lead to misinterpretation of CBC data. Current Interpretive Data was last revised on 2017. Lymphocyte pct 25.1 % [facility] ([place]) Comment: Interpretive Data Percent cell count reference ranges are not reported, since discordance with absolute values may lead to misinterpretation of CBC data. Current Interpretive Data was last revised on 2017. Monocyte pct 6.5 % [facility] ([place]) Comment: Interpretive Data Percent cell count reference ranges are not reported, since discordance with absolute values may lead to misinterpretation of CBC data. Current Interpretive Data was last revised on 2017. Eosinophil pct 1.7 % [facility] ([place]) Comment: Interpretive Data Percent cell count reference ranges are not reported, since discordance with absolute values may lead to misinterpretation of CBC data. Current Interpretive Data was last revised on 2017. Basophil pct 0.7 % [facility] ([place]) Comment: Interpretive Data Percent cell count reference ranges are not reported, since discordance with absolute values may lead to misinterpretation of CBC data. Current Interpretive Data was last revised on 2017. Blood 03/06/2025 8:45 PM CDT 03/06/2025 8:50 PM CDT Zion Gallo MD LAB BLOOD ORDERABLES Final Result [facility] ([place]) 1 [facility] Department [place] [address] * CBC with auto differential (03/06/2025 8:45 PM CDT) Pathologist [facility] WBC 7.58 3.80 - 9.90 K/cumm Hgb 12.3 11.9 - 15.5 g/dL [facility] ([place]) Hct 36.5 35.6 - 45.5 % [facility] ([place]) Plt 305 150 - 400 K/cumm [facility] ([place]) MPV 10.4 9.1 - 12.3 fL [facility] ([place]) RBC 4.31 3.90 - 5.20 M/cumm [facility] ([place]) MCV 84.7 81.3 - 96.4 fL [facility] ([place]) MCH 28.5 27.1 - 33.3 pg [facility] ([place]) MCHC 33.7 32.3 - 35.7 g/dL [facility] ([place]) RDW CV 12.8 11.1 - 14.9 % [facility] ([place]) RDW SD 39.4 35.7 - 48.1 fL [facility] ([place]) NRBC abs 0.00 0.00 - 0.01 K/cumm [facility] ([place]) Blood 03/06/2025 8:45 PM CDT 03/06/2025 8:50 PM CDT Zion Gallo MD LAB BLOOD ORDERABLES Final Result [facility] ([place]) 1 [facility] Department [place] [address] * ABO/Rh (03/06/2025 8:45 PM CDT) Pathologist [facility] ABO/Rh A Positive Blood 03/06/2025 8:45 PM CDT 03/06/2025 8:50 PM CDT Narrative [facility] ([place]) - 03/06/2025 9:49 PM CDT Has the patient had Daratumumab or Isatuximab in the past 6 months?->Unknown Zion Gallo MD LAB BLOOD BANK TEST ORDERAB LES Final Result Performing Organization Address City/[facility]/ZIP Co de Phone Number [facility] ([place]) 1 [facility] Department [place] [place] [address] * Antibody screen (03/06/2025 8:45 PM CDT) Pathologist [facility] [place], indirect, Gel Interpretation Negative ABSC Blood 03/06/2025 8:45 PM CDT 03/06/2025 8:50 PM CDT Narrative [facility] ([place]) - 03/06/2025 9:49 PM CDT Has the patient had Daratumumab or Isatuximab in the past 6 months?->Unknown Zion Gallo MD LAB BLOOD BANK TEST ORDERAB LES Final Result Performing Organization Address [facility] Co de Phone Number [facility] ([place]) [address] [place] [phone] * (ABNORMAL) hCG, blood, quantitative (03/06/2025 8:45 PM CDT) [facility] hCG, quant 1,431.0(H ) 0.0 - 5.0 IUnits/L Comment: Interpretive Data Male: < 5 IU/L Non- premenopausal Female: <5 IU/L The Marcia hCG Beta Quant assay procedure was used. Results from different manufacturers or methods may not be comparable. Serial testing should be performed using the same method. Interpretive Data was last revised on 2023 Blood 03/06/2025 8:45 PM CDT 03/06/2025 8:50 PM CDT Zion Gallo MD LAB BLOOD ORDERABLES Final Result Performing Organization Address City/[facility]/ZIP Co de Phone Number [facility] ([place]) 1 [facility] [place] [address] * (ABNORMAL) Comprehensive metabolic panel (03/06/2025 8:45 PM CDT) Sodium 136 135 - 145 mmol/L Potassium, pl 3.8 3.3 - 4.9 mmol/L [facility] ([place]) Chloride 102 97 - 110 mmol/L [facility] ([place]) CO2 24 22 - 32 mmol/L [facility] ([place]) Anion gap 10 2 - 15 mmol/L [facility] ([place]) BUN 8 6 - 25 mg/dL [facility] ([place]) Creatinine 0.65 0.60 - 1.10 mg/dL [facility]) Glucose 92 70 - 199 mg/dL [facility] ([place]) Comment: Interpretive Data Fasting glucose >/= 126 mg/dl is diagnostic for diabetes. Fasting is defined as no caloric intake for at least 8 hours. Fasting glucose between 100 mg/dl to 125 mg/dl is diagnostic of prediabetes. In a patient with classic symptoms of hyperglycemia or hyperglycemic crisis, a random glucose >/= 200 mg/dl is diagnostic for diabetes. In the absence of unequivocal hyperglycemia, results should be confirmed by repeat testing. The classification and Diagnosis of Diabetes Diabetes Care 2021; 46: S19-S40. Current interpretive data was last revised 2022. Calcium 9.7 8.5 - 10.3 mg/dL [facility] ([place]) Bilirubin, total 0.3 0.1 - 1.2 mg/dL [facility] ([place]) Protein, pl 7.1 6.5 - 8.5 g/dL [facility] ([place]) Albumin 4.5 3.5 - 5.0 g/dL [facility] ([place]) Alk phos 54(L) 70 - 260 Units/L [facility] ([place]) ALT 15 7 - 45 Units/L [facility] ([place]) AST 17 10 - 45 Units/L [facility] ([place]) Blood 03/06/2025 8:45 PM CDT 03/06/2025 8:50 PM CDT us Zion Gallo MD LAB BLOOD ORDERABLES Final Result [facility] ([place]) 1 [facility] Department [place] [address] * XR Chest PA Lateral 2 Views (02/24/2025 7:11 PM CDT) Anatomical Region Laterality Modality Body, Chest N/A Computed Radiogr aphy 02/24/2025 7:34 PM CDT Impressions 02/24/2025 7:34 PM CDT No acute cardiopulmonary process. Electronically signed by: Tita Truong M.D. Narrative 02/24/2025 7:34 PM CDT EXAMINATION: 2 view chest radiograph HISTORY: Chest pain. Chest wall pain. No cardiac history. Onset of symptoms today. FINDINGS: No comparison. The heart and mediastinal contours are normal. The lung riley are clear. There is no focal consolidation. No pleural effusion or pneumothorax. Osseous structures are normal. Procedure Note Tita Truong MD - 02/24/2025 EXAMINATION: 2 view chest radiograph HISTORY: Chest pain. Chest wall pain. No cardiac history. Onset of symptoms today. FINDINGS: No comparison. The heart and mediastinal contours are normal. The lung riley are clear. There is no focal consolidation. No pleural effusion or pneumothorax. Osseous structures are normal. IMPRESSION: No acute cardiopulmonary process. Electronically signed by: Tita Truong M.D. Angi Delgadillo TRIPPER IMG XR PROCEDURES Fi nal Result * eGFR (02/24/2025 7:04 PM CDT) eGFR >90 >=60 mL/min/1. 73 m2 Comment: Interpretive Data Reference Interval Normal >/= 90 mL/min/1.73m2 Mildly decreased* 60 - 89 mL/min/1.73m2 Mildly to moderately decreased 45 - 59 mL/min/1.73m2 Moderately to severely decreased 30 - 44 mL/min/1.73m2 Severely decreased 15 - 29 mL/min/1.73m2 Kidney Failure < 15 mL/min/1.73m2 *Relative to young adult level Estimated glomerular filtration rate is determined by the 2020 CKD-EPI equation recommended by the National Kidney Foundation (A Unifying Approach to GFR Estimation: Recommendations of the NKF-ASK Task Force on Reassessing the Inclusion of Race in Diagnosing Kidney Disease, JASN 2020). The CKD-EPI equation should not be used for patients with unstable renal function and has not been validated in children and those over 70. Current interpretive data was last reviewed 2021. Blood 02/24/2025 7:04 PM CDT 02/24/2025 7:28 PM CDT us Angi Delgadillo NP LAB BLOOD ORDERABLES Final Result [facility] ([place]) 1 [facility] Department [place] [address] * Differential, auto (02/24/2025 7:04 PM CDT) Neutrophil abs 4.30 1.50 - 6.50 K/cumm Imm gran abs 0.02 0.00 - 0.10 K/cumm [facility] ([place]) Lymphocyte abs 2.17 0.80 - 3.30 K/cumm [facility] ([place]) Monocyte abs 0.56 0.20 - 0.80 K/cumm [facility] ([place]) Eosinophil abs 0.15 0.00 - 0.50 K/cumm [facility] ([place]) Basophil abs 0.04 0.00 - 0.10 K/cumm [facility] ([place]) Neutrophil pct 59.3 % [facility] ([place]) Comment: Interpretive Data Percent cell count reference ranges are not reported, since discordance with absolute values may lead to misinterpretation of CBC data. Current Interpretive Data was last revised on 2017. Imm gran pct 0.3 % [facility] ([place]) Comment: Interpretive Data Percent cell count reference ranges are not reported, since discordance with absolute values may lead to misinterpretation of CBC data. Current Interpretive Data was last revised on 2017. Lymphocyte pct 30.0 % [facility] ([place]) Comment: Interpretive Data Percent cell count reference ranges are not reported, since discordance with absolute values may lead to misinterpretation of CBC data. Current Interpretive Data was last revised on 2017. Monocyte pct 7.7 % [facility] ([place]) Comment: Interpretive Data Percent cell count reference ranges are not reported, since discordance with absolute values may lead to misinterpretation of CBC data. Current Interpretive Data was last revised on 2017. Eosinophil pct 2.1 % [facility] ([place]) Comment: Interpretive Data Percent cell count reference ranges are not reported, since discordance with absolute values may lead to misinterpretation of CBC data. Current Interpretive Data was last revised on 2017. Basophil pct 0.6 % [facility] ([place]) Comment: Interpretive Data Percent cell count reference ranges are not reported, since discordance with absolute values may lead to misinterpretation of CBC data. Current Interpretive Data was last revised on 2017. Blood 02/24/2025 7:04 PM CDT 02/24/2025 7:21 PM CDT Angi Delgadillo TRIPPER LAB BLOOD ORDERABLES Final Result [facility] ([place]) 1 [facility] Department of Laboratories [place] [id number] * CBC with auto differential (02/24/2025 7:04 PM CDT) WBC 7.24 3.80 - 9.90 K/cumm Hgb 12.7 11.9 - 15.5 g/dL [facility] ([place]) Hct 37.7 35.6 - 45.5 % [facility] ([place]) Plt 305 150 - 400 K/cumm [facility] ([place]) MPV 10.4 9.1 - 12.3 fL [facility] ([place]) RBC 4.40 3.90 - 5.20 M/cumm [facility] ([place]) MCV 85.7 81.3 - 96.4 fL [facility] ([place]) MCH 28.9 27.1 - 33.3 pg [facility] ([place]) MCHC 33.7 32.3 - 35.7 g/dL [facility] ([place]) RDW CV 12.5 11.1 - 14.9 % [facility] ([place]) RDW SD 38.9 35.7 - 48.1 fL [facility] ([place]) NRBC abs 0.00 0.00 - 0.01 K/cumm [facility] ([place]) Blood 02/24/2025 7:04 PM CDT 02/24/2025 7:21 PM CDT Angi Delgadillo NP LAB BLOOD ORDERABLES Final Result [facility] ([place]) 1 [facility] Department [place] [address] * (ABNORMAL) Comprehensive metabolic panel (02/24/2025 7:04 PM CDT) Sodium 136 135 - 145 mmol/L Potassium, pl 4.0 3.3 - 4.9 mmol/L [facility]) Chloride 102 97 - 110 mmol/L [facility] ([place]) CO2 21(L) 22 - 32 mmol/L [facility] ([place]) Anion gap 13 2 - 15 mmol/L [facility] ([place]) BUN 10 6 - 25 mg/dL [facility] ([place]) Creatinine 0.60 0.60 - 1.10 mg/dL [facility]) Glucose 91 70 - 199 mg/dL [facility] ([place]) Comment: Interpretive Data Fasting glucose >/= 126 mg/dl is diagnostic for diabetes. Fasting is defined as no caloric intake for at least 8 hours. Fasting glucose between 100 mg/dl to 125 mg/dl is diagnostic of prediabetes. In a patient with classic symptoms of hyperglycemia or hyperglycemic crisis, a random glucose >/= 200 mg/dl is diagnostic for diabetes. In the absence of unequivocal hyperglycemia, results should be confirmed by repeat testing. The classification and Diagnosis of Diabetes Diabetes Care 2021; 46: S19-S40. Current interpretive data was last revised 2022. Calcium 9.9 8.5 - 10.3 mg/dL [facility] ([place]) Bilirubin, total 0.4 0.1 - 1.2 mg/dL [facility] ([place]) Protein, pl 7.5 6.5 - 8.5 g/dL [facility] ([place]) Albumin 4.7 3.5 - 5.0 g/dL [facility] ([place]) Alk phos 49(L) 70 - 260 Units/L [facility] ([place]) ALT 13 7 - 45 Units/L [facility] ([place]) AST 19 10 - 45 Units/L [facility] ([place]) Blood 02/24/2025 7:04 PM CDT 02/24/2025 7:19 PM CDT us Angi Delgadillo NP LAB BLOOD ORDERABLES Final Result [facility] ([place]) 1 [facility] Department [place] [address] * (ABNORMAL) Urinalysis reflex to microscopic and culture Urine (02/17/2025 3:05 PM CDT) Color, ur Yellow Yellow Clarity, ur Clear Clear [facility] ([place]) Specific gravity, ur 1.024 1.003 - 1.030 [facility] ([place]) pH, urine 7.0 [facility] ([place]) Comment: Interpretive Data U rine pH is affected by diet, medications, systemic acid-base disturbances, and renal tubular function. pH may affect urinary stone formation. For example, urine pH below 6.0 may help reduce the tendency for calcium phosphate stones and pH greater than 6.0 may reduce the tendency for uric acid stone formation. Source: [facility] [employer] Current Interpretive Data was last revised on 2017 Protein, ur ql Trace Negative [facility] ([place]) Glucose, ur ql Negative Negative [facility] ([place]) Ketones, ur 4+(A) Negative [facility] ([place]) Bilirubin, ur Negative Negative [facility] ([place]) Blood, ur Negative Negative [facility]) Urobilinogen, ur 2.0(A) <2.0 mg/dL [facility] ([place]) Nitrite, ur Negative Negative [facility] ([place]) Leukocyte esterase, ur 2+(A) Negative [facility] ([place]) UA reflex comment Reflex to microscopic UA will be performed. [facility] ([place]) Urine 02/17/2025 3:05 PM CDT 02/17/2025 3:07 PM CDT us Ilya Hall MD LAB MICROBIOLOGY - GENERAL O RDERABLES Final Result Performing Organization Address [facility] Co de Phone Number [facility] ([place]) 1 [facility] [place] [address] * (ABNORMAL) Urinalysis, microscopic only (02/17/2025 3:05 PM CDT) WBC, ur 0-5 0 - 5 /HPF RBC, ur 0-2 0 - 2 /HPF [facility] ([place]) Epithelial cells, squamous, ur 1-5 0 - 5 /HPF [facility] ([place]) Mucous, ur Present(A) [facility] ([place]) Culture Reflex Comment Reflex conditions for urine culture (WBC >10) not met. [facility] ([place]) Urine 02/17/2025 3:05 PM CDT 02/17/2025 3:07 PM CDT us Ilya Hall MD LAB URINE ORDERABLES Final R esult Performing Organization Address [facility] Co de Phone Number [facility] ([place]) 1 [place] [address] * US Ob Under 14 Weeks W Endovaginal (02/17/2025 3:03 PM CDT) Anatomical Region Laterality Modality Abdomen N/A Ultrasound 02/17/2025 3:25 PM CDT Narrative 02/17/2025 3:33 PM CDT EXAM DESCRIPTION: US OB UNDER 14 WEEKS W ENDOVAGINAL REASON FOR STUDY: , cramping beginning today with no bleeding. TECHNIQUE: Transabdominal and transvaginal images acquired of the pelvis. COMPARISON: None. FINDINGS: The clinical age based on the previous ultrasound is 12 weeks 1 day with an CAMERON 08/31/2025. The uterine size is not measured. There is an intrauterine with the pole, this is now measured at 1.91 cm corresponding to an estimated age 8 weeks 3 days with an CAMERON 09/26/2025. However, the size is minimally changed compared with 01/21/2025. More significantly, heart tones are no longer seen. Yolk sac not identified. No evidence of subchorionic hemorrhage. Right ovary is 3.0 x 2.0 x 2.2 cm. Preserved color flow and waveforms of the right ovary. Left ovary is not seen. The cervix is measured at 3.9 cm. IMPRESSION: Early loss. heart tones are no longer seen. Critical results discussed with Dr. Hall by Dr. Oviedo at approximately 3:28 pm central time on 02/17/2025 . THIS IS AN ELECTRONICALLY VERIFIED FINAL REPORT 02/17/2025 3:33 PM - Electronically signed by Jam Oviedo M.D. CH: Report ID: [id number] Reading Location: [id number] Procedure Note Jam Oviedo MD - 02/17/2025 EXAM DESCRIPTION: US OB UNDER 14 WEEKS W ENDOVAGINAL REASON FOR STUDY: , cramping beginning today with no bleeding. TECHNIQUE: Transabdominal and transvaginal images acquired of thepelvis. COMPARISON: None. FINDINGS: The clinical age based on the previous ultrasound is 12 weeks 1 day withan CAMERON 08/31/2025. The uterine size is not measured. There is an intrauterine with the pole, this is nowmeasured at 1.91 cm corresponding to an estimated age 8 weeks 3 days with an CAMERON 09/26/2025. However, the size is minimally changed compared with01/21/2025. More significantly, heart tones are no longer seen. Yolk sac not identified. No evidence of subchorionic hemorrhage. Right ovary is 3.0 x 2.0 x 2.2 cm. Preserved color flow and waveforms ofthe right ovary. Left ovary is not seen. The cervix is measured at 3.9 cm. IMPRESSION: Early loss. heart tones are no longer seen. Critical results discussed with Dr. Hall by Dr. Oviedo atapproximately 3:28 pm central time on 02/17/2025 . THIS IS AN ELECTRONICALLY VERIFIED FINAL REPORT 02/17/2025 3:33 PM - Electronically signed by Jam Oviedo M.D. CH: Report ID: [id number] Reading Location: [id number] us Ilya Hall MD IMG OB US PROCEDURES Final R esult * US VEIN DUPLEX LOWER EXTREMITY RIGHT LIMITED, UNILATERAL (02/17/2025 3:03 PM CDT) Anatomical Region Laterality Modality Vascular Right Ultrasound 02/17/2025 3:28 PM CDT Narrative 02/17/2025 3:32 PM CDT EXAM DESCRIPTION: US VEIN DUPLEX LOWER EXTREMITY RIGHT LIMITED, UNILATERAL REASON FOR STUDY: Localized Edema TECHNIQUE: Duplex scan using the B-mode, spectral Doppler, and color-flow Doppler of the deep venous system of the right lower extremity was performed. Images stored on PACS. COMPARISON: None. FINDINGS: The common femoral, common femoral-saphenous vein confluence, visualized profunda femoral, superficial femoral, and popliteal veins are readily compressible with no intraluminal thrombus on manriquez scale images. There is normal color and spectral Doppler signal, including augmentation. Greater saphenous vein appears patent. Visualized calf veins are patent. IMPRESSION: No lower extremity deep venous thrombosis. THIS IS AN ELECTRONICALLY VERIFIED FINAL REPORT 02/17/2025 3:32 PM - Electronically signed by Jam Oviedo M.D. CH: Report ID: [id number] Reading Location: [id number] Procedure Note Jam Oviedo MD - 02/17/2025 EXAM DESCRIPTION: US VEIN DUPLEX LOWER EXTREMITY RIGHT LIMITED,UNILATERAL REASON FOR STUDY: Localized Edema TECHNIQUE: Duplex scan using the B-mode, spectral Doppler, and color-flow Doppler of the deep venous system of the right lower extremity was performed. Images stored on PACS. COMPARISON: None. FINDINGS: The common femoral, common femoral-saphenous vein confluence, visualized profunda femoral, superficial femoral, and popliteal veins are readily compressible with no intraluminal thrombus on manriquez scale images. There is normal color and spectral Doppler signal, including augmentation. Greater saphenous vein appears patent. Visualized calf veins are patent. IMPRESSION: No lower extremity deep venous thrombosis. THIS IS AN ELECTRONICALLY VERIFIED FINAL REPORT 02/17/2025 3:32 PM - Electronically signed by Jam Oviedo M.D. CH: Report ID: [id number] Reading Location: [place] [id number] us Ilya Hall MD IMG US PROCEDURES Final Resu lt * eGFR (02/17/2025 1:30 PM CDT) eGFR >90 >=60 mL/min/1. 73 m2 Comment: Interpretive Data Reference Interval Normal >/= 90 mL/min/1.73m2 Mildly decreased* 60 - 89 mL/min/1.73m2 Mildly to moderately decreased 45 - 59 mL/min/1.73m2 Moderately to severely decreased 30 - 44 mL/min/1.73m2 Severely decreased 15 - 29 mL/min/1.73m2 Kidney Failure < 15 mL/min/1.73m2 *Relative to young adult level Estimated glomerular filtration rate is determined by the 2020 CKD-EPI equation recommended by the National Kidney Foundation (A Unifying Approach to GFR Estimation: Recommendations of the NKF-ASK Task Force on Reassessing the Inclusion of Race in Diagnosing Kidney Disease, JASN 202). The CKD-EPI equation should not be used for patients with unstable renal function and has not been validated in children and those over 70. Current interpretive data was last reviewed 2021. Blood 02/17/2025 1:30 PM CDT 02/17/2025 1:33 PM CDT us Ilya Hall MD LAB BLOOD ORDERABLES Final R esult VAR[facility] WOODS ([place]) 1 [facility] Department [place] [address] * Differential, auto (02/17/2025 1:30 PM CDT) Neutrophil abs 3.94 1.50 - 6.50 K/cumm Imm gran abs 0.02 0.00 - 0.10 K/cumm [facility] ([place]) Lymphocyte abs 1.72 0.80 - 3.30 K/cumm [facility] ([place]) Monocyte abs 0.41 0.20 - 0.80 K/cumm [facility] ([place]) Eosinophil abs 0.08 0.00 - 0.50 K/cumm [facility] ([place]) Basophil abs 0.04 0.00 - 0.10 K/cumm [facility] ([place]) Neutrophil pct 63.5 % [facility] ([place]) Comment: Interpretive Data Percent cell count reference ranges are not reported, since discordance with absolute values may lead to misinterpretation of CBC data. Current Interpretive Data was last revised on 2017. Imm gran pct 0.3 % [facility] ([place]) Comment: Interpretive Data Percent cell count reference ranges are not reported, since discordance with absolute values may lead to misinterpretation of CBC data. Current Interpretive Data was last revised on 2017. Lymphocyte pct 27.7 % [facility] ([place]) Comment: Interpretive Data Percent cell count reference ranges are not reported, since discordance with absolute values may lead to misinterpretation of CBC data. Current Interpretive Data was last revised on 2017. Monocyte pct 6.6 % [facility] ([place]) Comment: Interpretive Data Percent cell count reference ranges are not reported, since discordance with absolute values may lead to misinterpretation of CBC data. Current Interpretive Data was last revised on 2017. Eosinophil pct 1.3 % [facility] ([place]) Comment: Interpretive Data Percent cell count reference ranges are not reported, since discordance with absolute values may lead to misinterpretation of CBC data. Current Interpretive Data was last revised on 2017. Basophil pct 0.6 % [facility] ([place]) Comment: Interpretive Data Percent cell count reference ranges are not reported, since discordance with absolute values may lead to misinterpretation of CBC data. Current Interpretive Data was last revised on 2017. Blood 02/17/2025 1:30 PM CDT 02/17/2025 1:33 PM CDT Ilya Hall MD LAB BLOOD ORDERABLES Final R esult Performing Organization Address City/[facility] Co de Phone Number [facility] ([place]) 1 [facility] [place] [address] * CBC with auto differential (02/17/2025 1:30 PM CDT) WBC 6.21 3.80 - 9.90 K/cumm Hgb 12.8 11.9 - 15.5 g/dL [facility] ([place]) Hct 37.5 35.6 - 45.5 % [facility] ([place]) Plt 323 150 - 400 K/cumm [facility] ([place]) MPV 10.2 9.1 - 12.3 fL [facility] ([place]) RBC 4.44 3.90 - 5.20 M/cumm [facility] ([place]) MCV 84.5 81.3 - 96.4 fL [facility] ([place]) MCH 28.8 27.1 - 33.3 pg [facility] ([place]) MCHC 34.1 32.3 - 35.7 g/dL [facility] ([place]) RDW CV 12.4 11.1 - 14.9 % [facility] ([place]) RDW SD 37.8 35.7 - 48.1 fL [facility] ([place]) NRBC abs 0.00 0.00 - 0.01 K/cumm [facility] ([place]) Blood 02/17/2025 1:30 PM CDT 02/17/2025 1:33 PM CDT Ilya Hall MD LAB BLOOD ORDERABLES Final R esult Performing Organization Address City/[facility]/ZIP Co de Phone Number [facility] ([place]) 1 [place] [address] * ABO/Rh (02/17/2025 1:30 PM CDT) ABO/Rh A Positive Blood 02/17/2025 1:30 PM CDT 02/17/2025 1:33 PM CDT Narrative [place] - 02/17/2025 2:22 PM CDT Has the patient had Daratumumab or Isatuximab in the past 6 months?->Unknown Ilya Hall MD LAB BLOOD BANK TEST ORDERABL ES Final Result Performing Organization Address City/[facility]/ZIP Co de Phone Number [place] [place] [address] [place] [id number] * Antibody screen (02/17/2025 1:30 PM CDT) Parker, indirect, Gel Interpretation Negative ABSC Blood 02/17/2025 1:30 PM CDT 02/17/2025 1:33 PM CDT Narrative [place] [place] - 02/17/2025 2:38 PM CDT Has the patient had Daratumumab or Isatuximab in the past 6 months?->Unknown Ilya Hall MD LAB BLOOD BANK TEST ORDERABL ES Final Result Performing Organization Address City/[facility]/ZIP Co de Phone Number [place] [place] 1 [place] [address] * (ABNORMAL) hCG, blood, quantitative (02/17/2025 1:30 PM CDT) hCG, quant 35,895.0( H) 0.0 - 5.0 IUnits/L Comment: Interpretive Data Male: < 5 IU/L Non- premenopausal Female: <5 IU/L The Marcia hCG Beta Quant assay procedure was used. Results from different manufacturers or methods may not be comparable. Serial testing should be performed using the same method. Interpretive Data was last revised on 2023 Blood 02/17/2025 1:30 PM CDT 02/17/2025 1:33 PM CDT us Ilya Hall MD LAB BLOOD ORDERABLES Final R esult [facility] ([place]) 1 [facility] Department [place] [address] * (ABNORMAL) Comprehensive metabolic panel (02/17/2025 1:30 PM CDT) Sodium 134(L) 135 - 145 mmol/L Potassium, pl 3.6 3.3 - 4.9 mmol/L [facility] ([place]) Chloride 101 97 - 110 mmol/L [facility] ([place]) CO2 22 22 - 32 mmol/L [facility] ([place] Anion gap 11 2 - 15 mmol/L [facility] ([place]) BUN 6 6 - 25 mg/dL [facility] ([place]) Creatinine 0.54(L) 0.60 - 1.10 mg/dL [facility] ([place]) Glucose 85 70 - 199 mg/dL [facility] ([place]) Comment: Interpretive Data Fasting glucose >/= 126 mg/dl is diagnostic for diabetes. Fasting is defined as no caloric intake for at least 8 hours. Fasting glucose between 100 mg/dl to 125 mg/dl is diagnostic of prediabetes. In a patient with classic symptoms of hyperglycemia or hyperglycemic crisis, a random glucose >/= 200 mg/dl is diagnostic for diabetes. In the absence of unequivocal hyperglycemia, results should be confirmed by repeat testing. The classification and Diagnosis of Diabetes Diabetes Care 202; 46: S19-S40. Current interpretive data was last revised 2022. Calcium 9.8 8.5 - 10.3 mg/dL [facility] ([place]) Bilirubin, total 0.6 0.1 - 1.2 mg/dL [facility] ([place]) Protein, pl 7.0 6.5 - 8.5 g/dL [facility] ([place]) Albumin 4.4 3.5 - 5.0 g/dL [facility] ([place]) Alk phos 50(L) 70 - 260 Units/L [facility] ([place]) ALT 18 7 - 45 Units/L [facility] ([place]) AST 20 10 - 45 Units/L [facility] ([place]) Blood 02/17/2025 1:30 PM CDT 02/17/2025 1:33 PM CDT Ilya Hall MD LAB BLOOD ORDERABLES Final R esult VAR[facility] WOOD[facility] ([place]) 1 [facility] Department [place] [address] * (ABNORMAL) Sureswab(R) Advanced Vaginitis Plus, TMA Vaginal fluid (02/12/2025 7:41 AM CDT) Pathologist [facility] SureSwab(R) ADV Bacterial vaginosis (BV), TMA POSITIVE(A) NEGATIVE [facility] Kristal species NOT DETECTED NOT DETECTED [facility] Kristal glabrata NOT DETECTED NOT DETECTED [facility] Comment: Kristal species C. albicans, C. tropicalis, C. parapsilosis, and/or C. dubliniensis can be detected, but not differentiated, in the Kristal spp. result. Trichomonas vaginalis (TV), TMA NOT DETECTED NOT DETECTED [facility] C. trachomatis RNA DETECTED(A) NOT DETECTED [facility] Comment: If results do not correlate with clinical findings, testing using an alternate molecular target which amplifies different genetic sequences can be performed on the same sample for result confirmation within 7 days of sample receipt or per performing laboratory specimen retention policy. Alternate target testing is available; [address] (C. trachomatis) [place] [address] (N. gonorrhoeae). N. gonorrhoeae RNA NOT DETECTED NOT DETECTED [facility] Comment: For additional information, please refer to https://education.DineInTime/faq/HBH884 (This link is being provided for information/ educational purposes only.) Vaginal fluid 02/12/2025 7:4 1 AM CDT 02/13/2025 4:53 AM CDT Mani Vincent DO LAB MICROBIOLOGY - GENERAL OR DERABLES Final Result Performing Organization Address City/[facility]/ZIP Co de Phone Number [employer] [facility] [address] [place] [phone] * ECG 12 lead (01/22/2025 2:17 PM CDT) 01/22/2025 2:17 PM CDT Narrative [facility] - 01/22/2025 4:05 PM CDT Vent Rate: 123 bpm RR Interval: 487 msec IN Interval: 88 msec QRS Duration: 72 msec QT Interval: 330 msec QTC Interval: 403 msec P-R-T [place]: 18 - 27 - 43 degrees IMPRESSION: SINUS TACHYCARDIA WITH SHORT IN INTERVAL NONSPECIFIC T-WAVE ABNORMALITY ABNORMAL RHYTHM ECG NO CHANGE FROM PREVIOUS TRACING NOTED Electronically Signed By: Smooth Do MD Isai Gamble MD ECG ORDERABLES Edited Resul t - Final Performing Organization Address [facility] Co de Phone Number [facility] [employer] [facility] * US Ob Under 14 Weeks (01/21/2025 5:56 PM CDT) Anatomical Region Laterality Modality Abdomen N/A Ultrasound 01/21/2025 6:16 PM CDT Narrative 01/21/2025 6:19 PM CDT EXAM DESCRIPTION: US OB UNDER 14 WEEKS REASON FOR STUDY: abdominal pain, chest pain, palpitations, approx. 10 weeks with no previous ultrasound Beta-hC,069 TECHNIQUE: Transabdominal images acquired of the pelvis. COMPARISON: None available FINDINGS: Clinical gestational age: 10 weeks 1 day Clinical estimated Due Date: 08/18/2025 Intrauterine gestational sac: Present Yolk sac: Present Subchorionic bleed: No Placenta: Not identified Mean sac diameter: cm [place]-rump length: 1.8 cm heart rate: 164 bpm Gestational age by this ultrasound: 8 weeks 2 days [place] by this ultrasound: 08/31/2025 Uterus: The uterus is anteverted , measuring 8.6 x 7.0 x 5.4 cm. Right Ovary/Adnexa: The right ovary measures 3.0 x 2.7 x 2.1 cm. There is documentation of color Doppler flow in the right ovary. The right ovary appears unremarkable. No adnexal mass. Left Ovary/Adnexa: The left ovary is not well visualized. No adnexal abnormality. Free Fluid: None. Other Findings: None. IMPRESSION: Single live intrauterine . THIS IS AN ELECTRONICALLY VERIFIED FINAL REPORT 01/21/2025 6:19 PM - Electronically signed by Stanley Woodard M.D. RB: RB Report ID: [id number] Reading Location: [id number] Procedure Note Stanley Woodard MD - 01/21/2025 EXAM DESCRIPTION: US OB UNDER 14 WEEKS REASON FOR STUDY: abdominal pain, chest pain, palpitations, approx. 10weeks with no previous ultrasound Beta-hC,069 TECHNIQUE: Transabdominal images acquired of the pelvis. COMPARISON: None available FINDINGS: Clinical gestational age: 10 weeks 1 day Clinical estimated Due Date: 08/18/2025 Intrauterine gestational sac: Present Yolk sac: Present Subchorionic bleed: No Placenta: Not identified Mean sac diameter: cm [place]-rump length: 1.8 cm heart rate: 164 bpm Gestational age by this ultrasound: 8 weeks 2 days [place] by this ultrasound: 08/31/2025 Uterus: The uterus is anteverted , measuring 8.6 x 7.0 x 5.4 cm. Right Ovary/Adnexa: The right ovary measures 3.0 x 2.7 x 2.1 cm. Thereis documentation of color Doppler flow in the right ovary. The right ovary appears unremarkable. No adnexal mass. Left Ovary/Adnexa: The left ovary is not well visualized. No adnexal abnormality. Free Fluid: None. Other Findings: None. IMPRESSION: Single live intrauterine . THIS IS AN ELECTRONICALLY VERIFIED FINAL REPORT 01/21/2025 6:19 PM - Electronically signed by Stanley Woodard M.D. RB: RB Report ID: [id number] Reading Location: [id number] us Hoda Cifuentes MD IMG OB US PROCEDURES Courtney l Result * eGFR (01/21/2025 4:05 PM CDT) eGFR >90 >=60 mL/min/1. 73 m2 Comment: Interpretive Data Reference Interval Normal >/= 90 mL/min/1.73m2 Mildly decreased* 60 - 89 mL/min/1.73m2 Mildly to moderately decreased 45 - 59 mL/min/1.73m2 Moderately to severely decreased 30 - 44 mL/min/1.73m2 Severely decreased 15 - 29 mL/min/1.73m2 Kidney Failure < 15 mL/min/1.73m2 *Relative to young adult level Estimated glomerular filtration rate is determined by the 2020 CKD-EPI equation recommended by the National Kidney Foundation (A Unifying Approach to GFR Estimation: Recommendations of the NKF-ASK Task Force on Reassessing the Inclusion of Race in Diagnosing Kidney Disease, JASN 2020). The CKD-EPI equation should not be used for patients with unstable renal function and has not been validated in children and those over 70. Current interpretive data was last reviewed 2021. Blood 01/21/2025 4:05 PM CDT 01/21/2025 4:11 PM CDT Isai Gamble MD LAB BLOOD ORDERABLES Final R esult [facility] ([place]) 1 [facility] Department [place] [address] * (ABNORMAL) Differential, auto (01/21/2025 4:05 PM CDT) Neutrophil abs 7.71(H) 1.50 - 6.50 K/cumm Imm gran abs 0.04 0.00 - 0.10 K/cumm [facility] ([place]) Lymphocyte abs 1.58 0.80 - 3.30 K/cumm [facility] ([place]) Monocyte abs 0.70 0.20 - 0.80 K/cumm [facility] ([place]) Eosinophil abs 0.05 0.00 - 0.50 K/cumm [facility] ([place]) Basophil abs 0.05 0.00 - 0.10 K/cumm [facility] ([place]) Neutrophil pct 76.1 % [facility] ([place]) Comment: Interpretive Data Percent cell count reference ranges are not reported, since discordance with absolute values may lead to misinterpretation of CBC data. Current Interpretive Data was last revised on 2017. Imm gran pct 0.4 % [facility] ([place]) Comment: Interpretive Data Percent cell count reference ranges are not reported, since discordance with absolute values may lead to misinterpretation of CBC data. Current Interpretive Data was last revised on 2017. Lymphocyte pct 15.6 % [facility] ([place]) Comment: Interpretive Data Percent cell count reference ranges are not reported, since discordance with absolute values may lead to misinterpretation of CBC data. Current Interpretive Data was last revised on 2017. Monocyte pct 6.9 % [facility] ([place]) Comment: Interpretive Data Percent cell count reference ranges are not reported, since discordance with absolute values may lead to misinterpretation of CBC data. Current Interpretive Data was last revised on 2017. Eosinophil pct 0.5 % [facility] ([place]) Comment: Interpretive Data Percent cell count reference ranges are not reported, since discordance with absolute values may lead to misinterpretation of CBC data. Current Interpretive Data was last revised on 2017. Basophil pct 0.5 % [facility] ([place]) Comment: Interpretive Data Percent cell count reference ranges are not reported, since discordance with absolute values may lead to misinterpretation of CBC data. Current Interpretive Data was last revised on 2017. Blood 01/21/2025 4:05 PM CDT 01/21/2025 4:11 PM CDT us Isai Gamble MD LAB BLOOD ORDERABLES Final R esult VAR[facility] CHUCK ([place]) 1 [facility] Department [place] [address] * (ABNORMAL) Urinalysis reflex to microscopic and culture Urine (01/21/2025 4:05 PM CDT) Color, ur Yellow Yellow Clarity, ur Clear Clear [facility] ([place]) Specific gravity, ur 1.017 1.003 - 1.030 [facility] ([place]) pH, urine 6.0 [facility] ([place]) Comment: Interpretive Data U rine pH is affected by diet, medications, systemic acid-base disturbances, and renal tubular function. pH may affect urinary stone formation. For example, urine pH below 6.0 may help reduce the tendency for calcium phosphate stones and pH greater than 6.0 may reduce the tendency for uric acid stone formation. Source: [facility] [employer] Current Interpretive Data was last revised on 2017 Protein, ur ql Negative Negative [facility] ([place]) Glucose, ur ql Negative Negative [facility] ([place]) Ketones, ur 4+(A) Negative [facility] ([place]) Bilirubin, ur Negative Negative [facility] ([place]) Blood, ur Negative Negative [facility] ([place]) Urobilinogen, ur <2.0 <2.0 mg/dL [facility] ([place]) Nitrite, ur Negative Negative [facility] ([place]) Leukocyte esterase, ur 2+(A) Negative [facility] ([place]) UA reflex comment Reflex to microscopic UA will be performed. [facility] ([place]) Urine 01/21/2025 4:05 PM CDT 01/21/2025 4:11 PM CDT Isai Gamble MD LAB MICROBIOLOGY - GENERAL O RDERABLES Final Result [facility] ([place]) 1 [facility] Department [place] [address] * (ABNORMAL) CBC with auto differential (01/21/2025 4:05 PM CDT) WBC 10.13(H) 3.80 - 9.90 K/cumm Hgb 13.4 11.9 - 15.5 g/dL [facility] ([place]) Hct 39.2 35.6 - 45.5 % [facility] ([place]) Plt 328 150 - 400 K/cumm [facility] ([place]) MPV 10.2 9.1 - 12.3 fL [facility] ([place]) RBC 4.67 3.90 - 5.20 M/cumm [facility] ([place]) MCV 83.9 81.3 - 96.4 fL [facility] ([place]) MCH 28.7 27.1 - 33.3 pg [facility] ([place]) MCHC 34.2 32.3 - 35.7 g/dL [facility] ([place]) RDW CV 12.2 11.1 - 14.9 % [facility] ([place]) RDW SD 37.2 35.7 - 48.1 fL [facility] ([place]) NRBC abs 0.00 0.00 - 0.01 K/cumm [facility] ([place]) Blood 01/21/2025 4:05 PM CDT 01/21/2025 4:11 PM CDT Isai Gamble MD LAB BLOOD ORDERABLES Final R esult [facility] ([place]) 1 [facility] Department of Laboratories [place], [place] [id number] * (ABNORMAL) Drugs of Abuse Screen, Urine without Confirmation (01/21/2025 4:05 PM CDT) Pathologist [facility] Amphetamine, ur Not Detected CutOff 500ng/mL [facility] ([place]) Comment: Interpretive Data - Amphetamines: Samples containing greater than 500 ng/mL d-methamphetamine or other cross-reacting amphetamine compounds are reported as positive. Amphetamine immunoassays are subject to significant false positive rates due to cross-reactivity of non-amphetamine drugs. Confirmatory testing required for definitive results. Current Interpretive Data was last reviewed 2022. Barbiturates, ur Not Detected CutOff 200ng/mL [facility] ([place]) Comment: Interpretive Data - Barbiturates: Samples containing greater than 200 ng/mL secobarbital or other cross-reacting barbiturate compounds are reported as positive. False positive and false negative results are possible. Confirmatory testing required for definitive results. Current Interpretive Data was last reviewed 2022. Benzodiazepines, ur Not Detected CutOff 100ng/mL [facility] ([place]) Comment: Interpretive Data - Benzodiazepines: Samples containing greater than 100 ng/mL nordiazepam or other cross-reacting compounds are reported as positive. False positive and false negative results are possible. Confirmatory testing required for definitive results. Current Interpretive Data was last reviewed 2022. Cannabinoids, ur Screen Positive, presumptive (A) CutOff 50 ng/mL [facility] ([place]) Comment: Interpretive Data - Cannabinoids: Samples containing greater than 50 ng/mL delta-9 THC -COOH or other cross- reacting compounds are reported as positive. False positive and false negative results are possible. Confirmatory testing required for definitive results. Current Interpretive Data was last reviewed 2022. Cocaine, ur Not Detected CutOff 150ng/mL [facility] ([place]) Comment: Interpretive Data - Cocaine: Samples containing greater than 150 ng/mL benzoylecgonine or other cross- reacting compounds are reported as positive. False positive and false negative results are possible. Confirmatory testing required for definitive results. Current Interpretive Data was last reviewed 2022. Fentanyl, Ur Not Detected CutOff 5 ng/mL [facility] ([place]) Comment: Interpretive Data - Fentanyl: Samples containing greater than 5 ng/mL norfentanyl, fentanyl, or other cross-reacting fentanyl compounds are reported as positive. False positive and false negative results are possible. Confirmatory testing required for definitive results. Current Interpretive Data was last reviewed 2023. Methadone, ur Not Detected CutOff 300ng/mL [facility] ([place]) Comment: Interpretive Data - Methadone: Samples containing greater than 300 ng/mL d,l-methadone or other cross-reacting compounds are reported as positive. False positive and false negative results are possible. Confirmatory testing required for definitive results. Current Interpretive Data was last reviewed 2022. Opiates, ur Not Detected CutOff 300ng/mL [facility] ([place]) Comment: Interpretive Data - Opiates: Samples containing greater than 300 ng/mL morphine or other cross-reacting compounds are reported as positive. False positive and false negative results are possible. Confirmatory testing required for definitive results. Current Interpretive Data was last reviewed 2022. Oxycodone, ur NOT DETECTED CutOff 100ng/mL [facility] ([place]) Comment: Interpretive Data - Oxycodone: Samples containing greater than 100 ng/mL oxycodone or other cross-reacting compounds are reported as positive. False positive and false negative results are possible. Confirmatory testing required for definitive results. Current Interpretive Data was last reviewed 2022. Phencyclidine, ur Not Detected CutOff 25 ng/mL [facility] ([place]) Comment: Interpretive Data - Phencyclidine: Samples containing greater than 25 ng/mL phencyclidine or other cross-reacting compounds are reported as positive. False positive and false negative results are possible. Confirmatory testing required for definitive results. Current Interpretive Data was last reviewed 2022. Urine Creatinine 155 mg/dL [facility] ([place]) Comment: Interpretive Data Urine Creatinine: < 10 mg/dL is extremely dilute = or > 10 but < 20 mg/dL is dilute = or > 20 mg/dL is normal Current Interpretive Data was last revised on 2017. Urine 01/21/2025 4:05 PM CDT 01/21/2025 4:11 PM CDT Narrative [facility] ([place]) - 01/21/2025 4:28 PM CDT Drug of Abuse screening is performed by immunoassay for medical purposes only. This is not to be used for Pain Management purposes. Isai Gamble MD LAB URINE ORDERABLES Final R esult Performing Organization Address [facility] Co de Phone Number VARSHA WOODS ([place]) 1 [facility] [place] [address] * (ABNORMAL) hCG, urine, qualitative (01/21/2025 4:05 PM CDT) HCG, ur Positive(A) Negative Urine 01/21/2025 4:05 PM CDT 01/21/2025 5:47 PM CDT Isai Gamble MD LAB URINE ORDERABLES Final R esult Performing Organization Address City/[facility]/ZIP Co de Phone Number VARSHA [facility] ([place]) 1 [facility] [place] [address] * (ABNORMAL) Urinalysis, microscopic only (01/21/2025 4:05 PM CDT) WBC, ur 0-5 0 - 5 /HPF RBC, ur 0-2 0 - 2 /HPF [facility] ([place]) Epithelial cells, squamous, ur 1-5 0 - 5 /HPF [facility] ([place]) Bacteria, ur Trace(A) [facility] ([place]) Mucous, ur Present(A) [facility] A ([place]) Culture Reflex Comment Reflex conditions for urine culture (WBC >10) not met. [facility] ([place]) Urine 01/21/2025 4:05 PM CDT 01/21/2025 4:11 PM CDT Isai Gamble MD LAB URINE ORDERABLES Final R esult Performing Organization Address [facility] de Phone Number [facility] ([place]) 1 [facility] [employer] [place] [address] * (ABNORMAL) hCG, blood, quantitative (01/21/2025 4:05 PM CDT) hCG, quant 102,069.0 (H) 0.0 - 5.0 IUnits/L [facility] ([place]) Comment: Interpretive Data Male: < 5 IU/L Non- premenopausal Female: <5 IU/L The Marcia hCG Beta Quant assay procedure was used. Results from different manufacturers or methods may not be comparable. Serial testing should be performed using the same method. Interpretive Data was last revised on 2023 Blood 01/21/2025 4:05 PM CDT 01/21/2025 4:11 PM CDT Isai Gamble MD LAB BLOOD ORDERABLES Final R esult Performing Organization Address City/[facility]/ZIP Co de Phone Number [facility] ([place]) 1 [place] [address] * TSH (01/21/2025 4:05 PM CDT) Thyroid Stimulating Hormone 0.51 0.30 - 4.20 mcIUnit/mL [facility] ([place]) Blood 01/21/2025 4:05 PM CDT 01/21/2025 4:11 PM CDT Isai Gamble MD LAB BLOOD ORDERABLES Final R esult [facility] ([place]) 1 [facility] Department [place] [id number] * (ABNORMAL) Comprehensive metabolic panel (01/21/2025 4:05 PM CDT) Sodium 132(L) 135 - 145 mmol/L [facility] ([facility] Potassium, pl 3.6 3.3 - 4.9 mmol/L [facility]) Chloride 99 97 - 110 mmol/L [facility]) CO2 19(L) 22 - 32 mmol/L [facility]) Anion gap 14 2 - 15 mmol/L [facility] ([facility]) BUN 8 6 - 25 mg/dL [facility] ([facility]) Creatinine 0.61 0.60 - 1.10 mg/dL [facility] ([facility]) Glucose 81 70 - 199 mg/dL [facility] ([facility]) Comment: Interpretive Data Fasting glucose >/= 126 mg/dl is diagnostic for diabetes. Fasting is defined as no caloric intake for at least 8 hours. Fasting glucose between 100 mg/dl to 125 mg/dl is diagnostic of prediabetes. In a patient with classic symptoms of hyperglycemia or hyperglycemic crisis, a random glucose >/= 200 mg/dl is diagnostic for diabetes. In the absence of unequivocal hyperglycemia, results should be confirmed by repeat testing. The classification and Diagnosis of Diabetes Diabetes Care 2021; 46: S19-S40. Current interpretive data was last revised 2022. Calcium 9.7 8.5 - 10.3 mg/dL [facility] ([facility]) Bilirubin, total 0.4 0.1 - 1.2 mg/dL [facility] ([facility]) Protein, pl 7.1 6.5 - 8.5 g/dL [facility] ([facility]) Albumin 4.4 3.5 - 5.0 g/dL [facility] ([facility]) Alk phos 54(L) 70 - 260 Units/L [facility] ([facility]) ALT 12 7 - 45 Units/L [facility] ([facility]) AST 15 10 - 45 Units/L [facility] ([facility]) Blood 01/21/2025 4:05 PM CDT 01/21/2025 4:11 PM CDT us Isai Gamble MD LAB BLOOD ORDERABLES Final R esult [facility] ([facility]) [facility] Department [place] [address] from Last 3 Months Insurance [facility] Care Teams Cabinet Installer Relationship Specialty Start Date End Date Mani Vincent DO PCP - General Family Medicine 01/19/25
--- OUTSIDE RECORDS SUMMARY | 2025-04-21 07:48 | XMS_ITS | Encounter Summary ---
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
[2025-04-21 07:50] VITALS: BP 128/93
== END 2025-04-21 07:52 | disposition home or self-care (01) ==
PROVIDERS: Emergency Provider Emergency Medicine
DX: L25.9 Unspecified contact dermatitis, unspecified cause (principal)
CPT/HCPCS: 99283